=== PATIENT | male | born 1975 | race African-American/Black ===

== ENCOUNTER 2017-04-29 03:03 | Inpatient (IN) | payer OTHER ==
[~2017-04-29] VITALS: Ht 180.3 cm; Wt 67.9 kg
[2017-04-29] VITALS (13 sets, daily range): BP systolic 104–136; BP diastolic 65–103; PULSE 68–98; RESP 16–20; Ht 180.3 cm; Wt 67.9 kg
[2017-04-29] MEDS ORDERED: ALBU8.5H3 INH (06:38)
[2017-04-29] MEDS ORDERED: MAGN400T27 PO (06:38)
[2017-04-29] MEDS ORDERED: SPIR100T31 PO (06:38)
[2017-04-29] MEDS ORDERED: RAMI2.5C31 PO (06:38)
[2017-04-29] MEDS ORDERED: COU5 PO (06:38)
[2017-04-29] MEDS ORDERED: FURO40TA4 PO (06:38)
[2017-04-29] MEDS ORDERED: CARV3.12 PO (06:38)
[2017-04-29] MEDS ORDERED: ONDANSETRON 4 MG INJ IV PRN (07:30)
[2017-04-29] MEDS ORDERED: ACETAMINOPHEN 325 MG TAB PO PRN (07:30)
[2017-04-29 08:23] LABS: BASOPHIL # 0.1 10^3/ul (0.0-0.1); EOSINOPHILS # 0.3 10^3/ul (0.0-0.5); EOSINOPHILS % 4.1 % (0.0-7.0); HEMATOCRIT 45.2 % (42.0-52.0); HEMOGLOBIN 15.5 g/dl (14.0-18.0); LYMPHOCYTES % 27.1 % (15.0-51.0); MEAN CORPUSCULAR HEMOGLOBIN 30.3 pg (29.0-33.0); MEAN CORPUSCULAR HGB CONC 34.3 g/dl (32.0-37.0); MEAN CORPUSCULAR VOLUME 88.5 fl (82.0-101.0); MEAN PLATELET VOLUME 11.2 fl (7.4-10.4); MONOCYTE # 0.3 10^3/ul (0.3-0.9); MONOCYTES % 3.8 % (0.0-11.0); NEUTROPHIL # 4.7 10^3/ul (1.6-7.5); NEUTROPHILS % 63.7 % (39.0-77.0); PLATELET COUNT 227 10^3/UL (140-415); RED BLOOD COUNT 5.11 10^6/ul (4.70-6.10); RED CELL DISTRIBUTION WIDTH 15.7 % (11.5-14.5); WHITE BLOOD COUNT 7.3 10^3/ul (4.8-10.8)
[2017-04-29 08:50] LABS: CALCIUM 8.4 mg/dl (8.4-10.2); CHOL/HDL RATIO 4.3 RATIO; CREATININE 1.1 mg/dl (0.61-1.24); INR 1.06; POTASSIUM 4.1 mmol/L (3.5-5.1); PROTIME 13.9 Sec (11.9-14.9); PT RATIO 1.1
[2017-04-29 08:54] LABS: TROPONIN-I 0.058 ng/ml (0.00-0.12)
[2017-04-29] MEDS ORDERED: WARFARIN 5 MG TAB PO SCH (09:00)
[2017-04-29 09:01] LABS: CK-MB 1.35 ng/ml (0.0-2.4)
[2017-04-29] MEDS: ASPIRIN 81 MG TAB PO SCH (10:00)
[2017-04-29] MEDS: SPIRONOLACTONE 25 MG TAB PO SCH (10:01)
[2017-04-29] MEDS: MAGNESIUM OXIDE 400 MG TAB PO SCH (10:02)
[2017-04-29] MEDS: BENAZEPRIL 10 MG TAB PO SCH (10:02)
[2017-04-29] MEDS: ALBUTEROL HFA 8 GM INHALER INH SCH ×3 (11:04→17:40)
--- NOTE | 2017-04-29 14:17 | RADRPT ---
Echocardiogram Report Patient Name: DARIEL VENTURA Gender: Male Date: 1975 Study Date: 29-Apr-2017 Show Card Letterer: Kate [facility] Location: 5550-A Ref. Physician: FANNY REGAN Quality: Adequate Procedures: Transthoracic echocardiogram with complete 2D, M-Mode, and doppler examination. Indications: Atrial Fibrillation. 2D/M Mode Doppler Measurement Value Normal Ranges Measurement Value Normal Ranges LVIDd 2D 6.7 3.5 - 5.6 cm AV Peak Luis Fernando 0.9 m/sec LVIDs 2D 5.9 2.1 - 4.1 cm AV Peak PG 3.0 mmHg FS 2D 11.9 % LVOT Peak Luis Fernando 0.5 m/sec LVPWd 2D 1.0 0.6 - 1.1 cm LVOT Peak PG 1.0 mmHg IVSd 2D 1.0 0.6 - 1.1 cm MV E Peak Luis Fernando 1.0 m/sec IVS/LVPW 2D 1.0 MV Decel Time 88 msec AoR Diam 2D 2.7 2.0 - 3.7 cm TR Peak Luis Fernando 2.5 m/sec LA/Ao 2D 2 0 - 1 TR Peak PG 24.0 mmHg EDV 2D 294.0 cm3 RVSP 27.0 mmHg ESV 2D 201.0 cm3 LA Dimen 2D 4.5 2.3 - 4.0 cm Findings Left Ventricle: Normal left ventricular wall thickness. Moderate enlargement of left ventricle cavity. Severe global left ventricular systolic dysfunction. Ejection fraction is visually estimated at 20 %. Tissue Doppler/Mitral Doppler indices are consistent with impaired relaxation (Stage I diastolic dysfunction). Right Ventricle: Normal right ventricular size. Normal right ventricular systolic function. Left Atrium: There is mild enlargement of left atrium. Right Atrium: There is mild enlargement of right atrium. Mitral Valve: Mild mitral leaflet calcification. Mild mitral annular calcification. Mild to moderate mitral valve regurgitation. Aortic Valve: No significant aortic stenosis or insufficiency. Aortic sclerosis without significant stenosis. Tricuspid Valve: Normal appearance of the tricuspid valve. Estimated peak PA systolic pressure 27 mmHg. Tricuspid valve appears mildly thickened. There is mild tricuspid regurgitation. Pulmonic Valve: Pulmonic valve not well visualized. There is trace pulmonic regurgitation. Pericardium: Left pleural effusion seen. Aorta: Normal aortic root. IVC: Normal size and normal respiratory collapse consistent with normal right atrial pressure. Conclusions 1.Normal left ventricular wall thickness. Moderate enlargement of left ventricle cavity. Severe global left ventricular systolic dysfunction. Ejection fraction is visually estimated at 20 %. Tissue Doppler/Mitral Doppler indices are consistent with impaired relaxation (Stage I diastolic dysfunction). 2.There is mild enlargement of left atrium. 3.There is mild enlargement of right atrium. 4.Mild mitral leaflet calcification. Mild mitral annular calcification. Mild to moderate mitral valve regurgitation. 5.Normal appearance of the tricuspid valve. Estimated peak PA systolic pressure 27 mmHg. Tricuspid valve appears mildly thickened. There is mild tricuspid regurgitation. 6.Pulmonic valve not well visualized. There is trace pulmonic regurgitation. Electronically Signed By: Chas Islas 29-Apr-2017 14:16:03 -0800 Patient Name: DARIEL VENTURA Study Date: 29-Apr-2017 [id number]
--- NOTE | 2017-04-29 14:56 | QN ---
Documentation Comment Pt seen and examined at bedside FANNY REGAN MD Apr 29, 2017 14:56
[2017-04-29] MEDS ORDERED: morphine 2 MG INJ IV PRN (15:00)
--- NOTE | 2017-04-29 15:33 | CONS ---
DATE OF ADMISSION: 04/29/2017 DATE OF CONSULTATION: 04/29/2017 REASON FOR CONSULTATION: Chest pain, assess for acute coronary syndrome, congestive heart failure. REQUESTING PHYSICIAN: Dr. Fitzpatrick. HISTORY OF PRESENT ILLNESS: Mr. De La Torre is a 42-year-old male with a history of possible cardiomyopa thy and congestive heart failure, substance abuse with crack, methamphetamines, unclear reason for t aking Coumadin, question cardiac arrhythmia per history taken who presents with complaints of subste rnal chest pain described as a tightening sensation associated with shortness of breath ongoing for approximately 1 week. Initially, patient had presented to an outside hospital with chills where he had a negative troponin, INR of 1.1. The patient underwent a chest x-ray revealing prominent bronchovascular markings concerning for inga estive heart failure, dyspnea and a creatinine mildly elevated at 1.26. Sodium 141, potassium 4.0. Normal LFTs. White blood cell count 9.4, hemoglobin of 16.5, platelet count of 272. EKG is not in the chart, but per chart biopsy it stated that EKG at the outside hospital revealed sinus rhythm wi th a rate of 90 with left ventricular hypertrophy and inverted T waves V4 through V6, likely consist ent with the patient's LVH with strain pattern. The patient has thereafter been transferred to [facility] due to insurance reasons. Since arrival at [facility], t he patient continues to have mild substernal chest pressure. The patient has had stable vital signs . PAST MEDICAL HISTORY: As above in HPI. MEDICATIONS CURRENTLY IN HOSPITAL: 1. Lasix 40 mg p.o. b.i.d. 2. Aspirin 81 mg daily. 3. Albuterol 2 puffs q.6h. 4. Carvedilol 3.125 mg p.o. b.i.d. 5. Aldactone 25 mg daily. 6. Coumadin 5 mg daily. 7. Benazepril 10 mg daily. 8. Zofran. 9. Sublingual nitroglycerin p.r.n. ALLERGIES: NO KNOWN DRUG ALLERGIES. SOCIAL HISTORY: No tobacco, social ETOH. Positive illicit drug use with methamphetamines and crack per patient. FAMILY HISTORY: No history of sudden cardiac or early CAD. REVIEW OF SYSTEMS: As above in HPI. CONSTITUTIONAL: No fevers, chills. PULMONARY: Shortness of breath. CARDIOVASCULAR: Intermittent chest pain. GASTROINTESTINAL: No vomiting. GENITOURINARY: No hematuria. MUSCULOSKELETAL: Degenerative joint disease. PSYCHIATRIC: The patient denies depression. NEUROLOGIC: No documented history of CVA. PHYSICAL EXAMINATION VITAL SIGNS: Temperature 98.9, blood pressure 124/94, pulse 70, respirations 17, saturating 94% on 2 liters. GENERAL: The patient is alert, awake, complaining of shortness of breath and chest pain. NECK: JVP approximately 9 cm water. CHEST: Fair air movement throughout. HEART: Regular rate and rhythm. Normal S1, S2. Positive S3. ABDOMEN: Positive bowel sounds, soft. EXTREMITIES: No pitting edema, 1+ pulses bilateral posterior tibial. LABORATORIES: As above in HPI with most recently from today, sodium 139, potassium 4.1, creatinine 1.1, BUN 17. Troponin negative. LDL of 104, HDL 35, white count 7.3, hemoglobin 15.5, platelet cou nt 227. INR 1.1. IMAGING STUDIES: No imaging studies for my review at this time. ECG: No electrocardiograms for my review at this time. IMPRESSION: 1. Chest pain, assess for acute coronary syndrome. 2. Congestive heart failure by outside read chest x-ray and history. 3. Hypertension, under control. 4. Dyslipidemia with low HDL. 5. Substance abuse. 6. Possible cardiac arrhythmia, on Coumadin. RECOMMENDATIONS: 1. At this time, would maintain patient on telemetry monitoring to follow rhythm and rate control c losely. 2. Would check serial EKGs for change and EKG in the morning. EKG for any complaints of ches t pain or change in rhythm. 3. Complete the patient's rule out for myocardial infarction to ensure the patient's chest pain is not due to any acute coronary syndromes or acute myocardial infarction. 4. Check a 2D echocardiogram to further assess the patient's ejection fraction, wall motion and any major valve abnormalities. 5. Continue the patient's aspirin at this time for prophylaxis against cardiovascular events. 6. Continue the patient's current carvedilol, benazepril for treatment for what is probable cardiom yopathy. 7. Continue the patient's Lasix diuresis at this time. We will maintain n.p.o. Follow the patient 's volume status closely. 8. Will consider a stress testing in this patient if he rules out for myocardial infarction. 9. Continue the patient's Coumadin at this time and continue to assess for etiology and reason for standing Coumadin therapy. Thank you for allowing me to take part in the care of this patient. I will continue to follow along very closely with you. Further recommendations will be made as the patient progresses through his inpatient hospital clinical course. Dictated By: MADINA HOWARD/ALETA Conf#: [id number] DID#: [id number] CC: FANNY FITZPATRICK;*EndCC*
[2017-04-29 16:27] LABS: TROPONIN-I 0.086 ng/ml (0.00-0.12)
[2017-04-29 16:33] LABS: CK-MB 1.96 ng/ml (0.0-2.4)
[2017-04-29] MEDS: FUROSEMIDE 40 MG TAB PO SCH (17:40)
[2017-04-29] MEDS: NITROGLYCERIN (SL) 0.4 MG TAB SL PRN ×2 (17:42→17:50)
--- NOTE | 2017-04-29 20:36 | RADRPT ---
Vent Rate: 80 bpm RR Interval: 0 msec IN Interval: 144 msec QRS Duration: 102 msec QT Interval: 402 msec QTC Interval: 463 msec P-R-T [place]: 65 - 87 - 0 degrees Normal sinus rhythm Left atrial enlargement T wave abnormality, consider inferior ischemia Prolonged QT Abnormal ECG Electronically Signed By: Art Clay [id number]
[2017-04-29] MEDS: QUETIAPINE 25 MG TAB PO SCH (20:51)
[2017-04-29] MEDS: MIRTAZAPINE 15 MG TAB PO SCH (20:52)
[2017-04-29] MEDS: ISOSORBIDE DINITRATE 10 MG TAB PO SCH (20:52)
--- NOTE | 2017-04-29 20:53 | HP ---
DATE OF ADMISSION: 04/29/2017 REASON FOR ADMISSION: Chest pain, shortness of breath and lower extremity cramps. HISTORY OF PRESENT ILLNESS: This is a 42-year-old male who has a very strong positive history of co miriam abuse for the last 3 to 4 years, history of amphetamine use, who according to him, was diagnos ed with CHF 2 years ago, presented to the emergency department at [facility] complaining of chest pain for a few days, and also dyspnea on exertion. According to the patient, he was diagnose d a few years ago, at [facility], with CHF. He was told that he had really bad heart. He was started on some medications like Lasix, Coumadin and spironolactone; however, he said that since he got discharged from the hospital, he never took any medications. He is very noncompliant. For the last few weeks, the patient has been noticing intermittent left-sided chest pains, sharp, pressu re-like, staying all day long and had been having dyspnea on exertion that made him come to the [facility] [place]. The patient said that dyspnea on exertion was worse when he used to walk. He has been currently on disability. also been having cough and was taking some [place] . He denies any complaints of orthopnea. Denies any lower extremity edema. On arrival to [facility], vital signs were stable. The patient had EKG that showed T-wave inversions in lead V2, V4. Patient had troponin that was negative. The patient was sent in to [facility] for insurance reasons. On my examination, currently, patient said that he had been having interm ittent left-sided chest pains for past few days, which is exertional in nature. Patient has also be en noticing bilateral lower extremity leg cramping. The patient also has history of schizophrenia a nd has not been taking Seroquel and Remeron for past few days. PAST MEDICAL HISTORY: 1. Hypertension. 2. Drug abuse, cocaine, amphetamine. 3. Smoking. 4. History of CHF. ALLERGIES: NONE. PAST SURGICAL HISTORY: None. MEDICATIONS: Which were listed as per the records were: 1. Coreg 3.125 b.i.d. 2. Spironolactone 25. 3. Lasix 40 b.i.d. 4. Coumadin 5. 5. Ramipril 2.5. 6. Magnesium oxide 400. 7. Albuterol p.r.n. wheezing. 8. medications taking for his schizophrenia are Seroquel, Remeron and diphenhydramine. SOCIAL HISTORY: The patient lives in a rehab facility. The patient has a sister who lives close to him. FAMILY HISTORY: Noncontributory. REVIEW OF SYSTEMS: Patient complains of occasional headaches. Denies any blurry vision. Denies an y neck pain. Intermittent chest pain, shortness of breath with cough. No fevers, no chills, no hem atemesis, no melena, no bright blood per rectum. The patient also complains of cramping of the bila teral lower extremities, especially on walking. PHYSICAL EXAMINATION: VITAL SIGNS: Blood pressure 124/92, heart rate is 70, respirations 17, saturating 94%. GENERAL: The patient is awake, alert, oriented -[place] gentleman, appears to be in mild di stress secondary to pain. HEENT: Pupils equal, round, reactive to light. NECK: Supple. JVD. HEART: Regular rate and rhythm. No murmur, rub or gallop. LUNGS: Decreased breath sounds bilaterally. ABDOMEN: Soft, nontender, nondistended. BREASTS: The patient has gynecomastia. EXTREMITIES: No clubbing, cyanosis or edema. NEUROLOGIC: Nonfocal. DIAGNOSTIC DATA: Shows BMP within normal limit, BUN of 17, creatinine 1.70. Troponin was 0.058. L DL of 104. White count was 7.3, hemoglobin 15.5, platelet count of 227. The patient had chest x-ra y there at [facility] that showed some mild pulmonary edema. EKG shows T-wave inversions i n lead V2, V4. ASSESSMENT AND PLAN: A 42-year-old male presenting with: 1. Shortness of breath, dyspnea on exertion, orthopnea, likely secondary to [id number]-[id number] systol ic congestive heart failure. 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 2. Chest pain, rule out acute coronary syndrome given the history of cocaine use. 3. Bilateral lower extremity cramping. Rule out cocaine-induced rhabdomyolysis versus peripheral v ascular disease. 4. Hypertension. 5. History of drug use, cocaine use. 6. Noncompliance. 7. Marijuana use. 8. Amphetamine use. PLAN: At this period of time, patient will be admitted to [facility]. We will get serial EKG, serial trop onins. The patient will be on aspirin, statin, Coreg, Lasix, benazepril. We will get an echo. The patient will most likely need stress testing. Cardiology consultation with Dr. Islas has already been requested. Rest of the treatment will depend on the patient's hospitalization course. Dictated By: FANNY GUZMAN/ALETA Conf#: [id number] DID#: [id number] CC: CHARI PULIDO MD;*End*
[2017-04-29] MEDS ORDERED: MIRTAZAPINE 15 MG TAB GTB SCH (21:00)
[2017-04-29 21:13] LABS: CK-MB 2.15 ng/ml (0.0-2.4); TROPONIN-I 0.152 ng/ml (0.00-0.12)
[2017-04-29] MEDS: HYDROCODONE/APAP (5/325) TAB PO PRN (22:11)
[2017-04-30] VITALS (11 sets, daily range): BP systolic 107–127; BP diastolic 70–85; PULSE 61–89; RESP 15–20
[2017-04-30] MEDS: ALBUTEROL HFA 8 GM INHALER INH SCH ×4 (00:50→17:32)
[2017-04-30] MEDS: PANTOPRAZOLE (EC) 40 MG TAB PO SCH (05:09)
[2017-04-30] MEDS: FUROSEMIDE 40 MG TAB PO SCH (05:11)
--- NOTE | 2017-04-30 07:19 | RADRPT ---
PROCEDURE: US Lower extremity arterial. CLINICAL INDICATION: Claudication and rest pain. TECHNIQUE: Multiple sonographic images of the bilateral lower extremity arteries were obtained uti lizing grayscale, color-flow and doppler imaging. The images were reviewed on a PACS workstation. COMPARISON: None. FINDINGS: Velocities and waveforms were obtained as described below. RIGHT LEG: Right common femoral artery: 87 cm/s; triphasic waveforms Right profunda femoral artery: 48 cm/s; triphasic waveforms Right proximal superficial femoral artery: 85 cm/s; triphasic waveforms Right mid superficial femoral artery: 85 cm/s; triphasic waveforms Right distal superficial femoral artery: 89 cm/s; triphasic waveforms Right popliteal artery: 49 cm/s; triphasic waveforms Right posterior tibial artery: 61 cm/s; triphasic waveforms Right dorsalis pedis artery: 57 cm/s; triphasic waveforms REAL: 1.0 LEFT LEG: Left common femoral artery: 63 cm/s; triphasic waveforms Left profunda femoral artery: 42 cm/s; triphasic waveforms Left proximal superficial femoral artery: 71 cm/s; triphasic waveforms Left mid superficial femoral artery: 73 cm/s; triphasic waveforms Left distal superficial femoral artery: 84 cm/s; triphasic waveforms Left popliteal artery: 57 cm/s; triphasic waveforms Left posterior tibial artery: 76 cm/s; triphasic waveforms Left dorsalis pedis artery: 47 cm/s; triphasic waveforms REAL: 1.0 IMPRESSION: 1. No evidence of occlusion or hemodynamically significant arterial stenosis of the bilateral lower extremities. 2. Normal ABIs. RPTAT: AAEE Trudy Brooks Physician Date Time Electronically viewed and signed by Trudy Brooks Physician on 04/30/2017 07:18 PH/
[2017-04-30] MEDS: MAGNESIUM OXIDE 400 MG TAB PO SCH (08:40)
[2017-04-30] MEDS: ASPIRIN 81 MG TAB PO SCH (08:40)
[2017-04-30] MEDS: SPIRONOLACTONE 25 MG TAB PO SCH (08:40)
[2017-04-30] MEDS: HYDROCODONE/APAP (5/325) TAB PO PRN (08:40)
[2017-04-30] MEDS: ISOSORBIDE DINITRATE 10 MG TAB PO SCH ×3 (08:41→20:57)
[2017-04-30] MEDS: BENAZEPRIL 10 MG TAB PO SCH (08:41)
--- NOTE | 2017-04-30 09:43 | CONS ---
Date/Time of Note Date/Time of Note DATE: 04/30/17 TIME: 09:41 Assessment/Plan Assessment/Plan Additional Assessment/Plan 1. Chest pain, assess for acute coronary syndrome- minimally elevated troponins , plan for stress test now. 2. Congestive heart failure by outside read chest x-ray and history - EF 20%, con't Med Rx for now. 3. Hypertension, under control - stable overall. 4. Dyslipidemia with low HDL. 5. Substance abuse - d/c advised. 6. Possible cardiac arrhythmia, on Coumadin - sinus now. Consultation Date/Type/Reason Admit Date/Time Apr 29, 2017 at 05:16 Initial Consult Date 24 HR Interval Summary Free Text/Dictation Pt with abdominal discomfort - NSVT on tele - EF 20%, Stress test to follow. ROS: No fever, no chills, no nausea, no vomiting, no diarrhea/constipation No recent weight changes No chest pain, no PND, no orthopnea No dizziness, blurred vision No thirst, no heat or cold intolerance Exam/Review of Systems Vital Signs Vitals Vital Signs Date Time Temp Pulse Resp B/P Pulse Ox O2 Delivery O2 Flow Rate FiO2 04/30/17 08:13 61 04/30/17 07:21 98.3 20 107/72 97 04/29/17 21:00 Nasal Cannula 3.0 Intake and Output 04/29/17 04/29/17 04/30/17 15:00 23:00 07:00 Intake Total 980 ml 700 ml Output Total 1200 ml 2100 ml Balance -220 ml -1400 ml Exam General: WN/WD/NAD, AOx 3 HEENT: Unicetric/atraumatic/EOMI (follow commands) NECK: JVD elevated, no thyromegaly Lymph: no lymphadenopathy HEART: regular with no S3, II/ systolic murmur at apex - PMI L LUNGS: Coarse sounds ABD: soft, NT, ND, +BS : Intact Neuro: non focal SKIN: chronic changes EXT: trace edema Results Result Diagram: 04/29/1780304/29/17 0804 Results 24 hrs Laboratory Tests Test 04/29/17 14:52 04/29/17 20:20 04/30/17 06:22 Creatine Kinase 147 171 Creatine Kinase Index 1.3 1.3 Creatinine Kinase MB (Mass) 1.96 2.15 Troponin I 0.086 0.152 *H B-Type Natriuretic Peptide 2340 H Medications Medications Current Medications Aspirin (Aspirin) 81 mg DAILY PO Last administered on 04/30/17 08:40; Admin Dose 81 MG; Start 04/29/17 at 09:00 Ondansetron HCl (Zofran Inj) 4 mg Q6H PRN IV NAUSEA AND/OR VOMITING; Start 04/05 at 07:30 Acetaminophen (Tylenol Tab) 650 mg Q6H PRN PO PAIN AND OR ELEVATED TEMP Last administered on 04/29/17 10:01; Admin Dose 650 MG; Start 04/29/17 at 07:30 Pantoprazole (Protonix Tab) 40 mg DAILY@06 PO Last administered on 04/30/17 05:09; Admin Dose 40 MG; Start 04/30/17 at 06:00 Nitroglycerin (Nitroglycerin (Sl Tab) 0.4 Mg) 1 tab Q5M PRN SL ANGINA Last administered on 04/29/17 17:50; Admin Dose 1 TAB; Start 04/29/17 at 07:30 Albuterol (Ventolin Hfa) 2 puff Q6 INH Last administered on 04/30/17 05:09; Admin Dose 2 PUFF; Start 04/29/17 at 09:00 Carvedilol (Coreg) 3.125 mg BID PO Last administered on 04/29/17 20:53; Admin Dose 3.125 MG; Start 04/29/17 at 09:00 Magnesium Oxide (Mag-Ox 400) 400 mg DAILY PO Last administered on 04/30/17 08 :40; Admin Dose 400 MG; Start 04/29/17 at 09:00 Spironolactone (Aldactone) 25 mg DAILY PO Last administered on 04/30/17 08:40 ; Admin Dose 25 MG; Start 04/29/17 at 09:00 Benazepril HCl (Lotensin) 10 mg DAILY PO Last administered on 04/29/17 10:02 ; Admin Dose 10 MG; Start 04/29/17 at 09:00 Isosorbide Dinitrate (Isordil) 10 mg TID PO Last administered on 04/29/17 20: 52; Admin Dose 10 MG; Start 04/29/17 at 21:00 Acetaminophen/ Hydrocodone Bitart ([place] (5/325)) 1 tab Q4H PRN PO PAIN LEVEL 4 -6 Last administered on 04/30/17 08:40; Admin Dose 1 TAB; Start 04/29/17 at 15:00 Morphine Sulfate (morphine) 2 mg Q4H PRN IV PAIN LEVEL 8-10; Start 04/29/17 at 15:00 Quetiapine Fumarate (Seroquel) 50 mg HS PO Last administered on 04/29/17 20: 51; Admin Dose 50 MG; Start 04/29/17 at 21:00 Mirtazapine (Remeron) 15 mg HS PO Last administered on 04/29/17 20:52; Admin Dose 15 MG; Start 04/29/17 at 21:00 Bismuth Subsalicylate (Pepto-Bismol) 30 ml Q6H PRN PO GASTROINTESTINAL UPSET; Start 04/30/17 at 10:00 SERINA HOLDER MD Apr 30, 2017 09:43
[2017-04-30] MEDS: AL HYDROX/MG HYDROX/SIMETH 30 ML CUP PO PRN ×3 (09:52→22:24)
[2017-04-30] MEDS ORDERED: BISMUTH SUBSALICYLATE 120 ML BTL PO PRN (10:00)
--- NOTE | 2017-04-30 14:17 | PN ---
Date/Time of Note Date/Time of Note DATE: 04/30/17 TIME: 14:17 Assessment/Plan VTE Prophylaxis VTE Prophylaxis Intervention: heparin Lines/Catheters IV Catheter Type (from Nrs): Saline Lock Assessment/Plan Chief Complaint/Hosp Course 42 y/o with 1 Shortness of breath, dyspnea on exertion, orthopnea, likely secondary to uabct-mp-tasucty systolic congestive heart failure. 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 2. Chest pain, rule out acute coronary syndrome given the history of cocaine use. 3. Bilateral lower extremity cramping. U/S negative 4. Hypertension. 5. History of drug use, cocaine use. 6. Noncompliance. 7. Marijuana use. 8. Amphetamine use Recs - Stress test tmw - c/w benazepril/ASA/ Coreg/statin - ECHO EF 20% - Cocaine cessation - change lasix to 40 mg daily and c/w spirnolactone - c/w peptobisbol/PPI - Appreciate cards consult Problems: Subjective 24 Hr Interval Summary Free Text/Dictation Pt had abdominal pain today, refused stress test today due to pain Exam/Review of Systems Vital Signs Vitals Vital Signs Date Time Temp Pulse Resp B/P Pulse Ox O2 Delivery O2 Flow Rate FiO2 04/30/17 11:33 98.2 80 20 123/85 97 04/30/17 08:05 Nasal Cannula 2.0 Intake and Output 04/29/17 04/29/17 04/30/17 15:00 23:00 07:00 Intake Total 980 ml 700 ml Output Total 1200 ml 2100 ml Balance -220 ml -1400 ml Exam GENERAL: The patient is awake, alert, oriented -[place]i gentleman, appears to be in mild distress secondary to pain. HEENT: Pupils equal, round, reactive to light. NECK: Supple. JVD. HEART: Regular rate and rhythm. No murmur, rub or gallop. LUNGS: Decreased breath sounds bilaterally. ABDOMEN: Soft, nontender, nondistended. BREASTS: The patient has gynecomastia. EXTREMITIES: No clubbing, cyanosis or edema. NEUROLOGIC: Nonfocal. Results Result Diagram: 04/29/17 0804 04/29/17 0804 Results 24 hrs Laboratory Tests Test 04/29/17 14:52 04/29/17 20:20 04/30/17 06:22 Creatine Kinase 147 171 Creatine Kinase Index 1.3 1.3 Creatinine Kinase MB (Mass) 1.96 2.15 Troponin I 0.086 0.152 *H B-Type Natriuretic Peptide 2340 H Medications Medications Current Medications Aspirin (Aspirin) 81 mg DAILY PO Last administered on 04/30/17 08:40; Admin Dose 81 MG; Start 04/29/17 at 09:00 Ondansetron HCl (Zofran Inj) 4 mg Q6H PRN IV NAUSEA AND/OR VOMITING; Start 04/05 at 07:30 Acetaminophen (Tylenol Tab) 650 mg Q6H PRN PO PAIN AND OR ELEVATED TEMP Last administered on 04/29/17 10:01; Admin Dose 650 MG; Start 04/29/17 at 07:30 Pantoprazole (Protonix Tab) 40 mg DAILY@06 PO Last administered on 04/30/17 05:09; Admin Dose 40 MG; Start 04/30/17 at 06:00 Nitroglycerin (Nitroglycerin (Sl Tab) 0.4 Mg) 1 tab Q5M PRN SL ANGINA Last administered on 04/29/17 17:50; Admin Dose 1 TAB; Start 04/29/17 at 07:30 Albuterol (Ventolin Hfa) 2 puff Q6 INH Last administered on 04/30/17 13:08; Admin Dose 2 PUFF; Start 04/29/17 at 09:00 Carvedilol (Coreg) 3.125 mg BID PO Last administered on 04/30/17 13:09; Admin Dose 3.125 MG; Start 04/29/17 at 09:00 Magnesium Oxide (Mag-Ox 400) 400 mg DAILY PO Last administered on 04/30/17 08 :40; Admin Dose 400 MG; Start 04/29/17 at 09:00 Spironolactone (Aldactone) 25 mg DAILY PO Last administered on 04/30/17 08:40 ; Admin Dose 25 MG; Start 04/29/17 at 09:00 Benazepril HCl (Lotensin) 10 mg DAILY PO Last administered on 04/29/17 10:02 ; Admin Dose 10 MG; Start 04/29/17 at 09:00 Isosorbide Dinitrate (Isordil) 10 mg TID PO Last administered on 12/12/17at 13: 08; Admin Dose 10 MG; Start 04/29/17 at 21:00 Acetaminophen/ Hydrocodone Bitart ([place] (5/325)) 1 tab Q4H PRN PO PAIN LEVEL 4 -6 Last administered on 04/30/17 08:40; Admin Dose 1 TAB; Start 04/29/17 at 15:00 Morphine Sulfate (morphine) 2 mg Q4H PRN IV PAIN LEVEL 8-10; Start 04/29/17 at 15:00 Quetiapine Fumarate (Seroquel) 50 mg HS PO Last administered on 04/29/17 20: 51; Admin Dose 50 MG; Start 04/29/17 at 21:00 Mirtazapine (Remeron) 15 mg HS PO Last administered on 04/29/17 20:52; Admin Dose 15 MG; Start 04/29/17 at 21:00 Bismuth Subsalicylate (Pepto-Bismol) 30 ml Q6H PRN PO GASTROINTESTINAL UPSET; Start 04/30/17 at 10:00 Al Hydrox/Mg Hydrox/Simethicone (Mag-Al Plus) 30 ml Q4H PRN PO GASTROINTESTINAL UPSET Last administered on 04/30/17 09:52; Admin Dose 30 ML; Start 04/30/17 at 10:00 FANNY REGAN MD Apr 30, 2017 14:17
[2017-04-30] MEDS: MIRTAZAPINE 15 MG TAB PO SCH (20:57)
[2017-04-30] MEDS: QUETIAPINE 25 MG TAB PO SCH (20:57)
--- NOTE | 2017-04-30 21:49 | RADRPT ---
Vent Rate: 82 bpm RR Interval: 0 msec [place] Interval: 140 msec QRS Duration: 104 msec QT Interval: 408 msec QTC Interval: 476 msec P-R-T [place]: 73 - 96 - 91 degrees Normal sinus rhythm Biatrial enlargement Rightward axis Pulmonary disease pattern Left ventricular hypertrophy Cannot rule out Septal infarct , age undetermined T wave abnormality, consider lateral ischemia Abnormal ECG Electronically Signed By: Art Clay [id number]
[2017-05-01] VITALS (12 sets, daily range): BP systolic 95–116; BP diastolic 52–76; PULSE 60–80; RESP 16–19
[2017-05-01] MEDS: ALBUTEROL HFA 8 GM INHALER INH SCH ×4 (02:56→17:24)
[2017-05-01] MEDS: PANTOPRAZOLE (EC) 40 MG TAB PO SCH (06:00)
[2017-05-01 08:02] LABS: BASOPHIL # 0.1 10^3/ul (0.0-0.1); BASOPHILS % 1.3 % (0.0-2.0); EOSINOPHILS # 0.3 10^3/ul (0.0-0.5); EOSINOPHILS % 5.8 % (0.0-7.0); HEMATOCRIT 47.4 % (42.0-52.0); LYMPHOCYTES # 1.6 10^3/ul (0.8-2.9); LYMPHOCYTES % 30.1 % (15.0-51.0); MEAN CORPUSCULAR HEMOGLOBIN 29.8 pg (29.0-33.0); MEAN CORPUSCULAR HGB CONC 33.8 g/dl (32.0-37.0); MEAN CORPUSCULAR VOLUME 88.3 fl (82.0-101.0); MONOCYTE # 0.4 10^3/ul (0.3-0.9); MONOCYTES % 7.7 % (0.0-11.0); NEUTROPHIL # 2.9 10^3/ul (1.6-7.5); NEUTROPHILS % 55.1 % (39.0-77.0); PLATELET COUNT 233 10^3/UL (140-415); RED BLOOD COUNT 5.37 10^6/ul (4.70-6.10); RED CELL DISTRIBUTION WIDTH 15.2 % (11.5-14.5); WHITE BLOOD COUNT 5.3 10^3/ul (4.8-10.8)
[2017-05-01] MEDS: ASPIRIN 81 MG TAB PO SCH (08:31)
[2017-05-01] MEDS: AL HYDROX/MG HYDROX/SIMETH 30 ML CUP PO PRN (08:31)
[2017-05-01] MEDS: SPIRONOLACTONE 25 MG TAB PO SCH (08:32)
[2017-05-01] MEDS: MAGNESIUM OXIDE 400 MG TAB PO SCH (08:32)
[2017-05-01 08:33] LABS: CREATININE 1.32 mg/dl (0.61-1.24); POTASSIUM 4.6 mmol/L (3.5-5.1)
[2017-05-01] MEDS: BENAZEPRIL 10 MG TAB PO SCH (08:33)
[2017-05-01] MEDS: ISOSORBIDE DINITRATE 10 MG TAB PO SCH ×3 (08:33→21:17)
[2017-05-01] MEDS ORDERED: FUROSEMIDE 40 MG TAB PO SCH (09:00)
[2017-05-01] MEDS ORDERED: REGADENOSON 0.4 MG/5 ML SYG ONE (11:39)
--- NOTE | 2017-05-01 13:12 | RADRPT ---
PROCEDURE: Lexiscan myocardial perfusion study CLINICAL INDICATION: 42 -year-old patient complaining of chest pain. TECHNIQUE: Lexiscan 0.4 mg intravenously separate acquisition gated myocardial perfusion SPECT usi ng Tc 99m Myoview approximately 30.0 mCi intravenously at stress and Tc-99m Myoview, approximately 1 0.0 mCi intravenously at rest was performed using the rest/stress sequence. Poststress Myoview SPEC T images were obtained in the supine position. COMPARISON: No prior studies. FINDINGS: Perfusion images reveal a large size moderate in degree predominantly nonreversible perfusion defect in the apical, anterior, lateral and inferior curran. Lexiscan post stress gated SPECT images demonstrate severe hypokinesis of the dilated left ventricle . IMPRESSION: 1. The type and distribution of the scintigraphic abnormalities are most consistent with a large siz e predominantly nonreversible perfusion defect in the apex, anterior, lateral and inferior curran. 2. Severe hypokinesis of the dilated left ventricle. 3. The left ventricle ejection fraction at stress is 11%. A call report was made to Dr. Islas at 01:09 p.m. on May 01, 2017. RPTAT: HH .Yoana Solorio MD, Date Time Electronically viewed and signed by .Yoana Solorio MD, MD on 05/01/2017 13:11 .L/
--- NOTE | 2017-05-01 13:24 | ECORPT ---
DATE OF SERVICE: 05/01/2017 LEXISCAN CARDIAC STRESS TEST REFERRING PHYSICIAN: Dr. Pulido. REASON FOR EVALUATION: Cardiomyopathy, reduced ejection fraction. DESCRIPTION OF PROCEDURE: The patient was brought in heart station. He had successful Lexiscan inj ection. Blood pressure 130/84, heart rate in the 70s. Imaging portion of the report is dictated se andrewely. Dictated By: SERINA HOLDER MD ML/NTS Conf#: [id number] DID#: [id number] CC: CHARI PULIDO MD;*EndCC*
--- NOTE | 2017-05-01 14:16 | PN ---
Date/Time of Note Date/Time of Note DATE: 05/01/17 TIME: 14:14 Assessment/Plan VTE Prophylaxis VTE Prophylaxis Intervention: heparin, LMWH Lines/Catheters IV Catheter Type (from Nrs): Saline Lock Assessment/Plan Chief Complaint/Hosp Course 42 y/o with 1 Shortness of breath, dyspnea on exertion, orthopnea, likely secondary to [id number] systolic congestive heart failure. 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 2. Chest pain, rule out acute coronary syndrome given the history of cocaine use. pending stress test results 3. Bilateral lower extremity cramping. U/S negative 4. Hypertension. 5. History of drug use, cocaine use. 6. Noncompliance. 7. Marijuana use. 8. Amphetamine use 9 BINTA likely due to overdiuresis Recs - Stress test results pending - c/w benazepril/ASA/ Coreg/statin - ECHO EF 20% - Cocaine cessation - change lasix po - c/w peptobisbol/PPI - Appreciate cards consult Problems: Subjective 24 Hr Interval Summary Free Text/Dictation Pt feels better today net neg 1.6 L Exam/Review of Systems Vital Signs Vitals Vital Signs Date Time Temp Pulse Resp B/P Pulse Ox O2 Delivery O2 Flow Rate FiO2 05/01/17 12:13 80 05/01/17 11:24 97.8 16 112/76 100 04/30/17 20:00 Nasal Cannula 2.0 Intake and Output 04/30/17 04/30/17 05/01/17 14:59 22:59 06:59 Intake Total 960 ml 300 ml Output Total 1200 ml Balance -240 ml 300 ml Exam GENERAL: The patient is awake, alert, oriented -[place] gentleman, appears to be in mild distress secondary to pain. HEENT: Pupils equal, round, reactive to light. NECK: Supple. JVD. HEART: Regular rate and rhythm. No murmur, rub or gallop. LUNGS: Decreased breath sounds bilaterally. ABDOMEN: Soft, nontender, nondistended. BREASTS: The patient has gynecomastia. EXTREMITIES: No clubbing, cyanosis or edema. NEUROLOGIC: Nonfocal. Results Result Diagram: 05/01/17 0740 05/01/17 0740 Results 24 hrs Laboratory Tests Test 05/01/17 07:40 White Blood Count 5.3 # Red Blood Count 5.37 Hemoglobin 16.0 Hematocrit 47.4 Mean Corpuscular Volume 88.3 Mean Corpuscular Hemoglobin 29.8 Mean Corpuscular Hemoglobin Concent 33.8 Red Cell Distribution Width 15.2 H Platelet Count 233 Mean Platelet Volume 11.0 H Neutrophils % 55.1 Lymphocytes % 30.1 Monocytes % 7.7 Eosinophils % 5.8 Basophils % 1.3 Nucleated Red Blood Cells % 0.0 Neutrophils # 2.9 Lymphocytes # 1.6 Monocytes # 0.4 Eosinophils # 0.3 Basophils # 0.1 Nucleated Red Blood Cells # 0.0 Sodium Level 138 Potassium Level 4.6 Chloride Level 105 Carbon Dioxide Level 27 Anion Gap 11 Blood Urea Nitrogen 22 H Creatinine 1.32 H Glucose Level 87 Calcium Level 9.0 Medications Medications Current Medications Aspirin (Aspirin) 81 mg DAILY PO Last administered on 05/01/17 08:31; Admin Dose 81 MG; Start 04/29/17 at 09:00 Ondansetron HCl (Zofran Inj) 4 mg Q6H PRN IV NAUSEA AND/OR VOMITING; Start 04/05 at 07:30 Acetaminophen (Tylenol Tab) 650 mg Q6H PRN PO PAIN AND OR ELEVATED TEMP Last administered on 04/29/17 10:01; Admin Dose 650 MG; Start 04/29/17 at 07:30 Pantoprazole (Protonix Tab) 40 mg DAILY@06 PO Last administered on 04/30/17 05:09; Admin Dose 40 MG; Start 04/30/17 at 06:00 Nitroglycerin (Nitroglycerin (Sl Tab) 0.4 Mg) 1 tab Q5M PRN SL ANGINA Last administered on 04/29/17 17:50; Admin Dose 1 TAB; Start 04/29/17 at 07:30 Albuterol (Ventolin Hfa) 2 puff Q6 INH Last administered on 05/01/17 06:15; Admin Dose 2 PUFF; Start 04/29/17 at 09:00 Carvedilol (Coreg) 3.125 mg BID PO Last administered on 05/01/17 08:32; Admin Dose 3.125 MG; Start 04/29/17 at 09:00 Magnesium Oxide (Mag-Ox 400) 400 mg DAILY PO Last administered on 05/01/17 08 :32; Admin Dose 400 MG; Start 04/29/17 at 09:00 Spironolactone (Aldactone) 25 mg DAILY PO Last administered on 05/01/17 08:32 ; Admin Dose 25 MG; Start 04/29/17 at 09:00 Benazepril HCl (Lotensin) 10 mg DAILY PO Last administered on 05/01/17 08:33 ; Admin Dose 10 MG; Start 04/29/17 at 09:00 Isosorbide Dinitrate (Isordil) 10 mg TID PO Last administered on 05/01/17 08: 33; Admin Dose 10 MG; Start 04/29/17 at 21:00 Acetaminophen/ Hydrocodone Bitart ([place] (5/325)) 1 tab Q4H PRN PO PAIN LEVEL 4 -6 Last administered on 04/30/17 08:40; Admin Dose 1 TAB; Start 04/29/17 at 15:00 Morphine Sulfate (morphine) 2 mg Q4H PRN IV PAIN LEVEL 8-10; Start 04/29/17 at 15:00 Quetiapine Fumarate (Seroquel) 50 mg HS PO Last administered on 04/30/17 20: 57; Admin Dose 50 MG; Start 04/29/17 at 21:00 Mirtazapine (Remeron) 15 mg HS PO Last administered on 04/30/17 20:57; Admin Dose 15 MG; Start 04/29/17 at 21:00 Bismuth Subsalicylate (Pepto-Bismol) 30 ml Q6H PRN PO GASTROINTESTINAL UPSET; Start 04/30/17 at 10:00 Al Hydrox/Mg Hydrox/Simethicone (Mag-Al Plus) 30 ml Q4H PRN PO GASTROINTESTINAL UPSET Last administered on 05/01/17 08:31; Admin Dose 30 ML; Start 04/30/17 at 10:00 FANNY REGAN MD May 01, 2017 14:16
--- NOTE | 2017-05-01 15:49 | CONS ---
Date/Time of Note Date/Time of Note DATE: 05/01/17 TIME: 15:47 Assessment/Plan Assessment/Plan Additional Assessment/Plan NO acute change - STRESS TEST today - will follow ROS: No fever, no chills, no nausea, no vomiting, no diarrhea/constipation No recent weight changes No chest pain, no PND, no orthopnea No dizziness, blurred vision No thirst, no heat or cold intolerance Consultation Date/Type/Reason Admit Date/Time Apr 29, 2017 at 05:16 24 HR Interval Summary Free Text/Dictation NO acute events - BP in good range - will review stress test results. ROS: No fever, no chills, no nausea, no vomiting, no diarrhea/constipation No recent weight changes No chest pain, no PND, no orthopnea No dizziness, blurred vision No thirst, no heat or cold intolerance Exam/Review of Systems Vital Signs Vitals Vital Signs Date Time Temp Pulse Resp B/P Pulse Ox O2 Delivery O2 Flow Rate FiO2 05/01/17 15:40 98.1 97 16 105/71 100 04/30/17 20:00 Nasal Cannula 2.0 Intake and Output 04/30/17 04/30/17 05/01/17 15:00 23:00 07:00 Intake Total 960 ml 300 ml Output Total 1200 ml Balance -240 ml 300 ml Exam General: WN/WD/NAD, AOx 3 HEENT: Unicetric/atraumatic/EOMI (follow commands) NECK: JVD elevated, no thyromegaly Lymph: no lymphadenopathy HEART: regular with no S3, II/ systolic murmur at apex, PMI L LUNGS: Coarse sounds ABD: soft, NT, ND, +BS : Intact Neuro: non focal SKIN: chronic changes EXT: trace edema Results Result Diagram: 05/01/17 0740 05/01/17 0740 Results 24 hrs Laboratory Tests Test 05/01/17 07:40 White Blood Count 5.3 # Red Blood Count 5.37 Hemoglobin 16.0 Hematocrit 47.4 Mean Corpuscular Volume 88.3 Mean Corpuscular Hemoglobin 29.8 Mean Corpuscular Hemoglobin Concent 33.8 Red Cell Distribution Width 15.2 H Platelet Count 233 Mean Platelet Volume 11.0 H Neutrophils % 55.1 Lymphocytes % 30.1 Monocytes % 7.7 Eosinophils % 5.8 Basophils % 1.3 Nucleated Red Blood Cells % 0.0 Neutrophils # 2.9 Lymphocytes # 1.6 Monocytes # 0.4 Eosinophils # 0.3 Basophils # 0.1 Nucleated Red Blood Cells # 0.0 Sodium Level 138 Potassium Level 4.6 Chloride Level 105 Carbon Dioxide Level 27 Anion Gap 11 Blood Urea Nitrogen 22 H Creatinine 1.32 H Glucose Level 87 Calcium Level 9.0 Medications Medications Current Medications Aspirin (Aspirin) 81 mg DAILY PO Last administered on 05/01/17 08:31; Admin Dose 81 MG; Start 04/29/17 at 09:00 Ondansetron HCl (Zofran Inj) 4 mg Q6H PRN IV NAUSEA AND/OR VOMITING; Start 04/05 at 07:30 Acetaminophen (Tylenol Tab) 650 mg Q6H PRN PO PAIN AND OR ELEVATED TEMP Last administered on 04/29/17 10:01; Admin Dose 650 MG; Start 04/29/17 at 07:30 Pantoprazole (Protonix Tab) 40 mg DAILY@06 PO Last administered on 04/30/17 05:09; Admin Dose 40 MG; Start 04/30/17 at 06:00 Nitroglycerin (Nitroglycerin (Sl Tab) 0.4 Mg) 1 tab Q5M PRN SL ANGINA Last administered on 04/29/17 17:50; Admin Dose 1 TAB; Start 04/29/17 at 07:30 Albuterol (Ventolin Hfa) 2 puff Q6 INH Last administered on 05/01/17 06:15; Admin Dose 2 PUFF; Start 04/29/17 at 09:00 Carvedilol (Coreg) 3.125 mg BID PO Last administered on 05/01/17 08:32; Admin Dose 3.125 MG; Start 04/29/17 at 09:00 Magnesium Oxide (Mag-Ox 400) 400 mg DAILY PO Last administered on 05/01/17 08 :32; Admin Dose 400 MG; Start 04/29/17 at 09:00 Benazepril HCl (Lotensin) 10 mg DAILY PO Last administered on 05/01/17 08:33 ; Admin Dose 10 MG; Start 04/29/17 at 09:00 Isosorbide Dinitrate (Isordil) 10 mg TID PO Last administered on 05/01/17 08: 33; Admin Dose 10 MG; Start 04/29/17 at 21:00 Acetaminophen/ Hydrocodone Bitart ([place] (5/325)) 1 tab Q4H PRN PO PAIN LEVEL 4 -6 Last administered on 04/30/17 08:40; Admin Dose 1 TAB; Start 04/29/17 at 15:00 Morphine Sulfate (morphine) 2 mg Q4H PRN IV PAIN LEVEL 8-10; Start 04/29/17 at 15:00 Quetiapine Fumarate (Seroquel) 50 mg HS PO Last administered on 04/30/17 20: 57; Admin Dose 50 MG; Start 04/29/17 at 21:00 Mirtazapine (Remeron) 15 mg HS PO Last administered on 04/30/17 20:57; Admin Dose 15 MG; Start 04/29/17 at 21:00 Bismuth Subsalicylate (Pepto-Bismol) 30 ml Q6H PRN PO GASTROINTESTINAL UPSET; Start 04/30/17 at 10:00 Al Hydrox/Mg Hydrox/Simethicone (Mag-Al Plus) 30 ml Q4H PRN PO GASTROINTESTINAL UPSET Last administered on 05/01/17 08:31; Admin Dose 30 ML; Start 04/30/17 at 10:00 SERINA HOLDER MD May 01, 2017 15:49
[2017-05-01] MEDS: MIRTAZAPINE 15 MG TAB PO SCH (21:16)
[2017-05-01] MEDS: QUETIAPINE 25 MG TAB PO SCH (21:18)
[2017-05-02] VITALS (11 sets, daily range): BP systolic 92–116; BP diastolic 51–74; PULSE 60–80; RESP 18
[2017-05-02] MEDS: ALBUTEROL HFA 8 GM INHALER INH SCH ×4 (00:22→18:48)
[2017-05-02] MEDS: PANTOPRAZOLE (EC) 40 MG TAB PO SCH (06:47)
[2017-05-02] MEDS: MAGNESIUM OXIDE 400 MG TAB PO SCH (08:38)
[2017-05-02] MEDS: ASPIRIN 81 MG TAB PO SCH (08:38)
[2017-05-02] MEDS: AL HYDROX/MG HYDROX/SIMETH 30 ML CUP PO PRN (08:38)
[2017-05-02] MEDS: ISOSORBIDE DINITRATE 10 MG TAB PO SCH ×3 (08:39→21:00)
[2017-05-02] MEDS: BENAZEPRIL 10 MG TAB PO SCH (08:41)
[2017-05-02 09:33] LABS: CREATININE 1.28 mg/dl (0.61-1.24); POTASSIUM 4.6 mmol/L (3.5-5.1)
[2017-05-02 09:35] LABS: PHOSPHORUS 4.2 mg/dl (2.5-4.9)
--- NOTE | 2017-05-02 13:39 | CONS ---
Date/Time of Note Date/Time of Note DATE: 05/02/17 TIME: 13:36 Assessment/Plan Assessment/Plan Additional Assessment/Plan 1. Chest pain, assess for acute coronary syndrome- minimally elevated troponins , plan for stress test now. STRESS STESS LOW EF - no rev Dz - I discussed ICD with pt - he is not sure about it- will defer to outpatient evaluation. 2. Congestive heart failure by outside read chest x-ray and history - EF 20%, con't Med Rx for now. NO rev disease. 3. Hypertension, under control - stable overall. 4. Dyslipidemia with low HDL. 5. Substance abuse - d/c advised. 6. Possible cardiac arrhythmia, on Coumadin - sinus now. Consultation Date/Type/Reason Admit Date/Time Apr 29, 2017 at 05:16 24 HR Interval Summary Free Text/Dictation STRESS STESS LOW EF - no rev Dz - I discussed ICD with pt - he is not sure about iot =- will defer to outpatient evaluation. ROS: No fever, no chills, no nausea, no vomiting, no diarrhea/constipation No recent weight changes No chest pain, no PND, no orthopnea No dizziness, blurred vision No thirst, no heat or cold intolerance Exam/Review of Systems Vital Signs Vitals Vital Signs Date Time Temp Pulse Resp B/P Pulse Ox O2 Delivery O2 Flow Rate FiO2 05/02/17 12:54 70 05/02/17 11:39 98.1 18 115/72 100 04/30/17 20:00 Nasal Cannula 2.0 Intake and Output 05/01/17 05/01/17 05/02/17 15:00 23:00 07:00 Intake Total 720 ml 350 ml Balance 720 ml 350 ml Exam General: WN/WD/NAD, AOx 2-3 psych HEENT: Unicetric/atraumatic/EOMI (follow commands) NECK: JVD elevated, no thyromegaly Lymph: no lymphadenopathy HEART: regular with no S3, II/ systolic murmur at apex, PMI L LUNGS: Coarse sounds ABD: soft, NT, ND, +BS : Intact Neuro: non focal SKIN: chronic changes EXT: trace edema Results Result Diagram: 05/01/17 0740 05/02/17 0753 Results 24 hrs Laboratory Tests Test 05/02/17 07:53 Sodium Level 139 Potassium Level 4.6 Chloride Level 105 Carbon Dioxide Level 28 Anion Gap 11 Blood Urea Nitrogen 29 H Creatinine 1.28 H Glucose Level 74 Calcium Level 9.0 Phosphorus Level 4.2 Magnesium Level 2.0 Medications Medications Current Medications Aspirin (Aspirin) 81 mg DAILY PO Last administered on 05/02/17 08:38; Admin Dose 81 MG; Start 04/29/17 at 09:00 Ondansetron HCl (Zofran Inj) 4 mg Q6H PRN IV NAUSEA AND/OR VOMITING; Start 04/05 at 07:30 Acetaminophen (Tylenol Tab) 650 mg Q6H PRN PO PAIN AND OR ELEVATED TEMP Last administered on 04/29/17 10:01; Admin Dose 650 MG; Start 04/29/17 at 07:30 Pantoprazole (Protonix Tab) 40 mg DAILY@06 PO Last administered on 05/02/17 06:47; Admin Dose 40 MG; Start 04/30/17 at 06:00 Nitroglycerin (Nitroglycerin (Sl Tab) 0.4 Mg) 1 tab Q5M PRN SL ANGINA Last administered on 04/29/17 17:50; Admin Dose 1 TAB; Start 04/29/17 at 07:30 Albuterol (Ventolin Hfa) 2 puff Q6 INH Last administered on 05/02/17 06:48; Admin Dose 2 PUFF; Start 04/29/17 at 09:00 Carvedilol (Coreg) 3.125 mg BID PO Last administered on 05/01/17 21:17; Admin Dose 3.125 MG; Start 04/29/17 at 09:00 Magnesium Oxide (Mag-Ox 400) 400 mg DAILY PO Last administered on 05/02/17 08 :38; Admin Dose 400 MG; Start 04/29/17 at 09:00 Benazepril HCl (Lotensin) 10 mg DAILY PO Last administered on 05/01/17 08:33 ; Admin Dose 10 MG; Start 04/29/17 at 09:00 Isosorbide Dinitrate (Isordil) 10 mg TID PO Last administered on 05/01/17 21: 17; Admin Dose 10 MG; Start 04/29/17 at 21:00 Acetaminophen/ Hydrocodone Bitart ([place] (5/325)) 1 tab Q4H PRN PO PAIN LEVEL 4 -6 Last administered on 04/30/17 08:40; Admin Dose 1 TAB; Start 04/29/17 at 15:00 Morphine Sulfate (morphine) 2 mg Q4H PRN IV PAIN LEVEL 8-10; Start 04/29/17 at 15:00 Quetiapine Fumarate (Seroquel) 50 mg HS PO Last administered on 05/01/17 21: 18; Admin Dose 50 MG; Start 04/29/17 at 21:00 Mirtazapine (Remeron) 15 mg HS PO Last administered on 05/01/17 21:16; Admin Dose 15 MG; Start 04/29/17 at 21:00 Bismuth Subsalicylate (Pepto-Bismol) 30 ml Q6H PRN PO GASTROINTESTINAL UPSET; Start 04/30/17 at 10:00 Al Hydrox/Mg Hydrox/Simethicone (Mag-Al Plus) 30 ml Q4H PRN PO GASTROINTESTINAL UPSET Last administered on 05/02/17 08:38; Admin Dose 30 ML; Start 04/30/17 at 10:00 SERINA HOLDER MD May 02, 2017 13:39
--- NOTE | 2017-05-02 16:53 | PN ---
Date/Time of Note Date/Time of Note DATE: 05/02/17 TIME: 16:48 Assessment/Plan VTE Prophylaxis VTE Prophylaxis Intervention: other Lines/Catheters IV [facility] Saline Lock Assessment/Plan Chief Complaint/Hosp Course 42 y/o with 1 Shortness of breath, dyspnea on exertion, orthopnea, likely secondary to [id number] systolic congestive heart failure. 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 2. Chest pain, rule out acute coronary syndrome given the history of cocaine use s/p . stress test with nonreversible perfusion defect in the apex, anterior, lateral and inferior curran.Severe hypokinesis of the dilated left ventricle. The left ventricle ejection fraction at stress is 11%. 3. Bilateral lower extremity cramping. U/S negative 4. Hypertension. 5. History of drug use, cocaine use. 6. Noncompliance. 7. Marijuana use. 8. Amphetamine use 9 BINTA likely due to overdiuresis Recs - Pt refused AICD and fails to understand about his heart disease , said he cannot see that his heart is not pumping good and said that he stopped his drugs long time ago - c/w benazepril/ASA/ Coreg/statin - Hold Lasix for now, check UA - ECHO EF 20% - Cocaine cessation - c/w peptobisbol/PPI - Appreciate cards consult - sw consult Problems: Subjective 24 Hr Interval Summary Free Text/Dictation Pt refusing AICD and explained to him about his disease, risk of sudden and his EF only 20% but pt fails to understand ans says he cannot see from outside that heart is inor pumping good and he stopped drugs long time ago Exam/Review of Systems Vital Signs Vitals Vital Signs Date Time Temp Pulse Resp B/P Pulse Ox O2 Delivery O2 Flow Rate FiO2 05/02/17 16:10 76 05/02/17 11:39 98.1 18 115/72 100 04/30/17 20:00 Nasal Cannula 2.0 Intake and Output 05/01/17 05/01/17 05/02/17 14:59 22:59 06:59 Intake Total 720 ml 350 ml Balance 720 ml 350 ml Exam GENERAL: The patient is awake, alert, oriented -[place] gentleman, appears to be in mild distress secondary to pain. HEENT: Pupils equal, round, reactive to light. NECK: Supple. JVD. HEART: Regular rate and rhythm. No murmur, rub or gallop. LUNGS: Decreased breath sounds bilaterally. ABDOMEN: Soft, nontender, nondistended. BREASTS: The patient has gynecomastia. EXTREMITIES: No clubbing, cyanosis or edema. NEUROLOGIC: Nonfocal. Results Result Diagram: 05/01/17 0740 05/02/17 0753 Results 24 hrs Laboratory Tests Test 05/02/17 07:53 Sodium Level 139 Potassium Level 4.6 Chloride Level 105 Carbon Dioxide Level 28 Anion Gap 11 Blood Urea Nitrogen 29 H Creatinine 1.28 H Glucose Level 74 Calcium Level 9.0 Phosphorus Level 4.2 Magnesium Level 2.0 Medications Medications Current Medications Aspirin (Aspirin) 81 mg DAILY PO Last administered on 05/02/17 08:38; Admin Dose 81 MG; Start 04/29/17 at 09:00 Ondansetron HCl (Zofran Inj) 4 mg Q6H PRN IV NAUSEA AND/OR VOMITING; Start 04/05 at 07:30 Acetaminophen (Tylenol Tab) 650 mg Q6H PRN PO PAIN AND OR ELEVATED TEMP Last administered on 04/29/17 10:01; Admin Dose 650 MG; Start 04/29/17 at 07:30 Pantoprazole (Protonix Tab) 40 mg DAILY@06 PO Last administered on 05/02/17 06:47; Admin Dose 40 MG; Start 04/30/17 at 06:00 Nitroglycerin (Nitroglycerin (Sl Tab) 0.4 Mg) 1 tab Q5M PRN SL ANGINA Last administered on 04/29/17 17:50; Admin Dose 1 TAB; Start 04/29/17 at 07:30 Albuterol (Ventolin Hfa) 2 puff Q6 INH Last administered on 05/02/17 12:00; Admin Dose 2 PUFF; Start 04/29/17 at 09:00 Carvedilol (Coreg) 3.125 mg BID PO Last administered on 05/01/17 21:17; Admin Dose 3.125 MG; Start 04/29/17 at 09:00 Magnesium Oxide (Mag-Ox 400) 400 mg DAILY PO Last administered on 05/02/17 08 :38; Admin Dose 400 MG; Start 04/29/17 at 09:00 Benazepril HCl (Lotensin) 10 mg DAILY PO Last administered on 05/01/17 08:33 ; Admin Dose 10 MG; Start 04/29/17 at 09:00 Isosorbide Dinitrate (Isordil) 10 mg TID PO Last administered on 05/01/17 21: 17; Admin Dose 10 MG; Start 04/29/17 at 21:00 Acetaminophen/ Hydrocodone Bitart ([place] (5/325)) 1 tab Q4H PRN PO PAIN LEVEL 4 -6 Last administered on 04/30/17 08:40; Admin Dose 1 TAB; Start 04/29/17 at 15:00 Morphine Sulfate (morphine) 2 mg Q4H PRN IV PAIN LEVEL 8-10; Start 04/29/17 at 15:00 Quetiapine Fumarate (Seroquel) 50 mg HS PO Last administered on 05/01/17 21: 18; Admin Dose 50 MG; Start 04/29/17 at 21:00 Mirtazapine (Remeron) 15 mg HS PO Last administered on 05/01/17 21:16; Admin Dose 15 MG; Start 04/29/17 at 21:00 Bismuth Subsalicylate (Pepto-Bismol) 30 ml Q6H PRN PO GASTROINTESTINAL UPSET; Start 04/30/17 at 10:00 Al Hydrox/Mg Hydrox/Simethicone (Mag-Al Plus) 30 ml Q4H PRN PO GASTROINTESTINAL UPSET Last administered on 05/02/17 08:38; Admin Dose 30 ML; Start 04/30/17 at 10:00 FANNY REGAN MD May 02, 2017 16:53
[2017-05-02] MEDS: MIRTAZAPINE 15 MG TAB PO SCH (21:18)
[2017-05-02] MEDS: QUETIAPINE 25 MG TAB PO SCH (21:18)
[2017-05-03] VITALS (10 sets, daily range): BP systolic 105–128; BP diastolic 50–64; PULSE 65–78; RESP 18–20
[2017-05-03] MEDS: ALBUTEROL HFA 8 GM INHALER INH SCH ×3 (05:28→12:02)
[2017-05-03] MEDS: PANTOPRAZOLE (EC) 40 MG TAB PO SCH (05:28)
[2017-05-03 08:12] LABS: CALCIUM 8.7 mg/dl (8.4-10.2); CREATININE 1.3 mg/dl (0.61-1.24); POTASSIUM 4.7 mmol/L (3.5-5.1)
[2017-05-03] MEDS: ISOSORBIDE DINITRATE 10 MG TAB PO SCH ×2 (08:12→12:01)
[2017-05-03] MEDS: BENAZEPRIL 10 MG TAB PO SCH ×2 (08:13→08:14)
[2017-05-03] MEDS: ASPIRIN 81 MG TAB PO SCH (08:14)
[2017-05-03] MEDS: MAGNESIUM OXIDE 400 MG TAB PO SCH (08:14)
[2017-05-03] MEDS: AL HYDROX/MG HYDROX/SIMETH 30 ML CUP PO PRN (12:05)
--- NOTE | 2017-05-03 14:28 | PN ---
JOANNE PINEDAA 05/03/17 1427: Date/Time of Note Date/Time of Note DATE: 05/03/17 TIME: 14:26 Assessment/Plan VTE Prophylaxis VTE Prophylaxis Intervention: ambulation Lines/Catheters IV [facility] [place] Assessment/Plan Chief Complaint/Hosp Course 1 Shortness of breath, dyspnea on exertion, orthopnea, likely secondary to [id number] systolic congestive heart failure. 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 2. Chest pain, rule out acute coronary syndrome given the history of cocaine use s/p . stress test with nonreversible perfusion defect in the apex, anterior, lateral and inferior curran.Severe hypokinesis of the dilated left ventricle. The left ventricle ejection fraction at stress is 11%. 3. Bilateral lower extremity cramping. U/S negative 4. Hypertension. 5. History of drug use, cocaine use. 6. Non-compliance. 7. Marijuana use. 8. Amphetamine use 9 BINTA likely due to overdiuresis Problems: Assessment/Plan 1. Discharge home 2. Pt refused ACID 3. he has a risk for sudden due to cardiomyopathy 4. place a phone call dr Islas 5. Pt needs to see cardiology per insurance Subjective 24 Hr Interval Summary Respiratory: shortness of breath Exam/Review of Systems Vital Signs Vitals Vital Signs Date Time Temp Pulse Resp B/P Pulse Ox O2 Delivery O2 Flow Rate FiO2 05/03/17 12:10 68 05/03/17 11:55 98.0 18 111/64 100 04/30/17 20:00 Nasal Cannula 2.0 Intake and Output 05/02/17 05/02/17 05/03/17 15:00 23:00 07:00 Intake Total 800 ml 600 ml Balance 800 ml 600 ml Exam Constitutional: alert, oriented Respiratory: diminished breath sounds Cardiovascular: regular rate and rhythm Results Result Diagram: 05/01/17 0740 05/03/17 0718 Results 24 hrs Laboratory Tests Test 05/02/17 16:40 05/03/17 07:18 Troponin I 0.051 Sodium Level 141 Potassium Level 4.7 Chloride Level 106 Carbon Dioxide Level 30 Anion Gap 10 Blood Urea Nitrogen 26 H Creatinine 1.30 H Glucose Level 85 Calcium Level 8.7 Medications Medications Current Medications Aspirin (Aspirin) 81 mg DAILY PO Last administered on 05/03/17t 08:14; Admin Dose 81 MG; Start 04/29/17 at 09:00 Ondansetron HCl (Zofran Inj) 4 mg Q6H PRN IV NAUSEA AND/OR VOMITING; Start 04/05 at 07:30 Acetaminophen (Tylenol Tab) 650 mg Q6H PRN PO PAIN AND OR ELEVATED TEMP Last administered on 04/29/17 10:01; Admin Dose 650 MG; Start 04/29/17 at 07:30 Pantoprazole (Protonix Tab) 40 mg DAILY@06 PO Last administered on 05/03/17 05:28; Admin Dose 40 MG; Start 04/30/17 at 06:00 Nitroglycerin (Nitroglycerin (Sl Tab) 0.4 Mg) 1 tab Q5M PRN SL ANGINA Last administered on 04/29/17 17:50; Admin Dose 1 TAB; Start 04/29/17 at 07:30 Albuterol (Ventolin Hfa) 2 puff Q6 INH Last administered on 05/03/17 12:02; Admin Dose 2 PUFF; Start 04/29/17 at 09:00 Carvedilol (Coreg) 3.125 mg BID PO Last administered on 05/01/17 21:17; Admin Dose 3.125 MG; Start 04/29/17 at 09:00 Magnesium Oxide (Mag-Ox 400) 400 mg DAILY PO Last administered on 05/03/17 08 :14; Admin Dose 400 MG; Start 04/29/17 at 09:00 Benazepril HCl (Lotensin) 10 mg DAILY PO Last administered on 05/01/17 08:33 ; Admin Dose 10 MG; Start 04/29/17 at 09:00 Isosorbide Dinitrate (Isordil) 10 mg TID PO Last administered on 05/03/17 12: 01; Admin Dose 10 MG; Start 04/29/17 at 21:00 Acetaminophen/ Hydrocodone Bitart ([place] (5/325)) 1 tab Q4H PRN PO PAIN LEVEL 4 -6 Last administered on 04/30/17 08:40; Admin Dose 1 TAB; Start 04/29/17 at 15:00 Morphine Sulfate (morphine) 2 mg Q4H PRN IV PAIN LEVEL 8-10; Start 04/29/17 at 15:00 Quetiapine Fumarate (Seroquel) 50 mg HS PO Last administered on 05/02/17 21: 18; Admin Dose 50 MG; Start 04/29/17 at 21:00 Mirtazapine (Remeron) 15 mg HS PO Last administered on 05/02/17 21:18; Admin Dose 15 MG; Start 04/29/17 at 21:00 Bismuth Subsalicylate (Pepto-Bismol) 30 ml Q6H PRN PO GASTROINTESTINAL UPSET; Start 04/30/17 at 10:00 Al Hydrox/Mg Hydrox/Simethicone (Mag-Al Plus) 30 ml Q4H PRN PO GASTROINTESTINAL UPSET Last administered on 05/03/17 12:05; Admin Dose 30 ML; Start 04/30/17 at 10:00 FANNY REGAN MD 05/03/17 1619: Assessment/Plan Assessment/Plan Assessment/Plan dc home if cleared by cards Exam/Review of Systems Results Result Diagram: 05/01/17 0740 05/03/17 0718 SAKINA PINEDA May 03, 2017 14:27 FANNY REGAN MD May 03, 2017 16:19
--- NOTE | 2017-05-03 15:04 | PDOCDIS ---
Discharge Instructions CONDITION Patient Condition: Stable HOME CARE INSTRUCTIONS: Special Diet: cardiac diet ACTIVITY: Activity Restrictions: Slowly Increase Activity FOLLOW UP/APPOINTMENTS Follow-up Plan PCP 1 week, follow with cardiology per insurance coverage SCHOOL/WORK RELEASE May return to School/Work with: With Restrictions SAKINA PINEDA May 03, 2017 15:04
[2017-05-03] MEDS ORDERED: NITR0.4T32 SL (15:12)
[2017-05-03] MEDS ORDERED: ASPI81TA3 PO (15:12)
[2017-05-03] MEDS ORDERED: ISOS10TA2 PO (15:12)
[2017-05-03] MEDS ORDERED: MIRT15TA5 PO (15:12)
[2017-05-03] MEDS ORDERED: QUET25TA33 PO (15:12)
[2017-05-03] MEDS ORDERED: ALBU18HF INH (15:17)
[2017-05-03] MEDS ORDERED: CARV3.1260 PO (15:17)
[2017-05-03] MEDS ORDERED: FURO40TA4 PO (15:17)
--- NOTE | 2017-05-03 15:24 | DS ---
Date/Time of Note Date/Time of Note DATE: 05/03/17 TIME: 15:22 Discharge Summary Admission/Discharge Info Admit Date/Time Apr 29, 2017 at 05:16 Discharge Date/Time Discharge Diagnosis Shortness of breath Patient Condition: Stable Consults [facility] cardiology Procedures echocardiogram Hospital Course This is a 42-year-old male who has a very strong positive history of cocaine abuse for the last 3 to 4 years, history of amphetamine use, who according to him, was diagnosed with CHF 2 years ago, presented to the emergency department at [facility] complaining of chest pain for a few days, and also dyspnea on exertion. According to the patient, he was diagnosed a few years ago , at [facility], with CHF. He was told that he had really bad heart. He was started on some medications like Lasix, Coumadin and spironolactone; however, he said that since he got discharged from the hospital, he never took any medications. He is very noncompliant. For the last few weeks, the patient has been noticing intermittent left-sided chest pains, sharp, pressure-like, staying all day long and had been having dyspnea on exertion that made him come to the emergency department at [facility]. The patient said that dyspnea on exertion was worse when he used to walk. He has been currently on disability. also been having cough and was taking some [place]. He denies any complaints of orthopnea. Denies any lower extremity edema. On arrival to [facility], vital signs were stable. The patient had EKG that showed T- wave inversions in lead V2, V4. Patient had troponin that was negative. The patient was sent in to [facility] for insurance reasons. On my examination, currently, patient said that he had been having intermittent left-sided chest pains for past few days, which is exertional in nature. Patient has also been noticing bilateral lower extremity leg cramping. The patient also has history of schizophrenia and has not been taking Seroquel and Remeron for past few days. 1 Shortness of breath, dyspnea on exertion, orthopnea, likely secondary to [id number] systolic congestive heart failure. 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 2. Chest pain, rule out acute coronary syndrome given the history of cocaine use s/p . stress test with nonreversible perfusion defect in the apex, anterior, lateral and inferior curran.Severe hypokinesis of the dilated left ventricle. The left ventricle ejection fraction at stress is 11%. 3. Bilateral lower extremity cramping. U/S negative 4. Hypertension. 5. History of drug use, cocaine use. 6. Non-compliance. 7. Marijuana use. 8. Amphetamine use 9 BINTA likely due to overdiuresis Patient was kept on telemetry service during hospitalization, his electrolytes got stabilized, medications tailored to his needs. Pt was offered ACID but he refused it. Impressions: 1. Pt has a risk for sudden due to cardiomyopathy 2. Pt needs to see cardiology often Home Meds Active Scripts Furosemide* (Furosemide*) 40 Mg Tablet, 40 MG PO DAILY for 30 Days, TAB Prov:SAKINA PINEDA 05/03/17 Carvedilol* (Carvedilol*) 3.125 Mg Tablet, 3.125 MG PO BID for 30 Days, TAB Prov:SAKINA PINEDA 05/03/17 Albuterol Sulfate* (Ventolin HFA*) 18 Gm Hfa.aer.ad, 2 PUFF INH Q6 for 30 Days Prov:SAKINA PINEDA 05/03/17 Quetiapine Fumarate* (Quetiapine Fumarate*) 25 Mg Tablet, 50 MG PO HS for 30 Days, TAB Prov:SAKINA PINEDA 05/03/17 Nitroglycerin* (Nitroglycerin* SL) 0.4 Mg Tab.subl, 1 TAB SL Q5M Y for ANGINA for 30 Days Prov:SAKINA PINEDA 05/03/17 Mirtazapine* (Mirtazapine*) 15 Mg Tablet, 15 MG PO HS for 30 Days, TAB Prov:SAKINA PINEDA 05/03/17 Isosorbide Dinitrate* (Isordil*) 10 Mg Tablet, 10 MG PO TID for 30 Days, TAB Prov:SAKINA PINEDA 05/03/17 Aspirin (Aspirin) 81 Mg Chew, 81 MG PO DAILY for 30 Days, TAB Prov:SAKINA PINEDA 05/03/17 Reported Medications Magnesium Oxide* (Mag-Oxide*) 400 Mg Tablet, 400 MG PO DAILY, TAB 04/29/17 Ramipril (Altace) 2.5 Mg Capsule, 2.5 MG PO DAILY, CAP 04/29/17 Discontinued Reported Medications Albuterol Sulfate* (Proair HFA*) 8.5 Gm Hfa.aer.ad, 2 PUFF INH Q6, #1 INHALER 04/29/17 Warfarin Sod (Coumadin) 5 Mg Tab, 5 MG PO DAILY, TAB 04/29/17 Furosemide* (Furosemide*) 40 Mg Tablet, 40 MG PO BID, TAB 04/29/17 Spironolactone* (Spironolactone*) 100 Mg Tablet, 25 MG PO DAILY, TAB 04/29/17 Carvedilol* (Coreg*) 3.125 Mg Tablet, 3.125 MG PO BID, #60 TAB 04/29/17 Follow-up Plan PCP 1 week, follow with cardiology per insurance coverage Primary Care Provider Moise Nina Time spent on discharge: < 30 minutes Pending Labs Laboratory Tests Test 05/02/17 16:40 05/03/17 07:18 Troponin I 0.051ng/ml (0.00-0.12) Sodium Level 141mmol/L (135-144) Potassium Level 4.7mmol/L (3.5-5.1) Chloride Level 106mmol/L (97-110) Carbon Dioxide Level 30mmol/L (21-31) Anion Gap 10 (8-16) Blood Urea Nitrogen 26mg/dl (7-20) Creatinine 1.30mg/dl (0.61-1.24) Glucose Level 85mg/dl (70-220) Calcium Level 8.7mg/dl (8.4-10.2) SAKINA PINEDA May 03, 2017 15:24
--- NOTE | 2017-05-03 17:27 | CONS ---
Date/Time of Note Date/Time of Note DATE: 05/03/17 TIME: 17:18 Assessment/Plan Assessment/Plan Chief Complaint/Hosp Course IMP: 1.cardiomyopathy-with severe LV dysfunction 2.Chest pain-resolved. Lexiscan with scar . no ischemia 3.Renal insufficiency 4. CHF-systolic acute on chronic. Good volume status by exam currently 5. NSVT-longest 4 beats. Refuded ICD at this time or life vest. mg 2.0 05/02 with K>4.0 today Recc: -Tele -serial ecg's -Continue current BB/ACEI as tolerated -would start low dose daily lasix to assure good volume status -Continmue low dose isordil as tolerated -Given info for outpatient f/u with myself -OK for d/c from cardiac standpoint Problems: Consultation Date/Type/Reason Admit Date/Time Apr 29, 2017 at 05:16 Initial Consult Date 04/29/17 Type of Consultation: cardiology Reason for Consultation CHF/cardiomyopathy Referring Provider: FANNY REGAN MD Exam/Review of Systems Vital Signs Vitals Vital Signs Date Time Temp Pulse Resp B/P Pulse Ox O2 Delivery O2 Flow Rate FiO2 05/03/17 16:04 78 05/03/17 16:01 98.0 20 128/61 100 04/30/17 20:00 Nasal Cannula 2.0 Intake and Output 05/02/17 05/02/17 05/03/17 15:00 23:00 07:00 Intake Total 800 ml 600 ml Balance 800 ml 600 ml Exam Review of Systems: CONSTITUTIONAL: No fevers, chills. PULMONARY: No sob CARDIOVASCULAR: No chest pain/palpitations GASTROINTESTINAL: No nausea/vomiting. GENITOURINARY: No hematuria/dysuria. MUSCULOSKELETAL: No myagias/arthalgias. PSYCHIATRIC: The patient denies depression. NEUROLOGIC: No weakness Constitutional: alert, oriented Psych: no complaints Head: normocephalic ENMT: mucosa pink and moist Neck: jvd (8 cm water), supple Respiratory: diminished breath sounds Cardiovascular: regular rate and rhythm Gastrointestinal: non-tender, soft Musculoskeletal: muscle tone (normal) Extremities: edema (none) Neurological: other (No focal deficits) Results Result Diagram: 05/01/17 0740 05/03/17 0718 Results 24 hrs Laboratory Tests Test 05/03/17 07:18 Sodium Level 141 Potassium Level 4.7 Chloride Level 106 Carbon Dioxide Level 30 Anion Gap 10 Blood Urea Nitrogen 26 H Creatinine 1.30 H Glucose Level 85 Calcium Level 8.7 Medications Medications Current Medications Aspirin (Aspirin) 81 mg DAILY PO Last administered on 05/03/17 08:14; Admin Dose 81 MG; Start 04/29/17 at 09:00 Ondansetron HCl (Zofran Inj) 4 mg Q6H PRN IV NAUSEA AND/OR VOMITING; Start 04/05 at 07:30 Acetaminophen (Tylenol Tab) 650 mg Q6H PRN PO PAIN AND OR ELEVATED TEMP Last administered on 04/29/17 10:01; Admin Dose 650 MG; Start 04/29/17 at 07:30 Pantoprazole (Protonix Tab) 40 mg DAILY@06 PO Last administered on 05/03/17 05:28; Admin Dose 40 MG; Start 04/30/17 at 06:00 Nitroglycerin (Nitroglycerin (Sl Tab) 0.4 Mg) 1 tab Q5M PRN SL ANGINA Last administered on 04/29/17 17:50; Admin Dose 1 TAB; Start 04/29/17 at 07:30 Albuterol (Ventolin Hfa) 2 puff Q6 INH Last administered on 05/03/17 12:02; Admin Dose 2 PUFF; Start 04/29/17 at 09:00 Carvedilol (Coreg) 3.125 mg BID PO Last administered on 05/01/17 21:17; Admin Dose 3.125 MG; Start 04/29/17 at 09:00 Magnesium Oxide (Mag-Ox 400) 400 mg DAILY PO Last administered on 05/03/17 08 :14; Admin Dose 400 MG; Start 04/29/17 at 09:00 Benazepril HCl (Lotensin) 10 mg DAILY PO Last administered on 05/01/17 08:33 ; Admin Dose 10 MG; Start 04/29/17 at 09:00 Isosorbide Dinitrate (Isordil) 10 mg TID PO Last administered on 05/03/17 12: 01; Admin Dose 10 MG; Start 04/29/17 at 21:00 Acetaminophen/ Hydrocodone Bitart ([place] (5/325)) 1 tab Q4H PRN PO PAIN LEVEL 4 -6 Last administered on 04/30/17 08:40; Admin Dose 1 TAB; Start 04/29/17 at 15:00 Morphine Sulfate (morphine) 2 mg Q4H PRN IV PAIN LEVEL 8-10; Start 04/29/17 at 15:00 Quetiapine Fumarate (Seroquel) 50 mg HS PO Last administered on 05/02/17 21: 18; Admin Dose 50 MG; Start 04/29/17 at 21:00 Mirtazapine (Remeron) 15 mg HS PO Last administered on 05/02/17 21:18; Admin Dose 15 MG; Start 04/29/17 at 21:00 Bismuth Subsalicylate (Pepto-Bismol) 30 ml Q6H PRN PO GASTROINTESTINAL UPSET; Start 04/30/17 at 10:00 Al Hydrox/Mg Hydrox/Simethicone (Mag-Al Plus) 30 ml Q4H PRN PO GASTROINTESTINAL UPSET Last administered on 05/03/17 12:05; Admin Dose 30 ML; Start 04/30/17 at 10:00 MADINA ELIZABETH May 03, 2017 17:27
[2017-05-04] MEDS ORDERED: FUROSEMIDE 20 MG TAB PO SCH (06:00)
[2017-05-04] MEDS ORDERED: BENAZEPRIL 5 MG TAB PO SCH (09:00)
== END 2017-05-03 18:05 | disposition home or self-care (01) | DRG 292 ==
LOC: MS4 05:16
PROVIDERS: ADMIT Internal Medicine Nephrology; ATTEND Internal Medicine Nephrology
DX: I11.0 Hypertensive heart disease with heart failure (principal); N17.9 Acute kidney failure, unspecified; I42.8 Other cardiomyopathies; F20.9 Schizophrenia, unspecified; I42.7 Cardiomyopathy due to drug and external agent; F14.10 Cocaine abuse, uncomplicated; I50.23 Acute on chronic systolic (congestive) heart failure; I25.5 Ischemic cardiomyopathy; R07.9 Chest pain, unspecified; R25.2 Cramp and spasm; E78.5 Hyperlipidemia, unspecified; F15.90 Other stimulant use, unspecified, uncomplicated; Z91.14 Patient's other noncompliance with medication regimen
CPT/HCPCS: 78452; 80048; 80061; 82550; 82553; 83735; 83880; 84100; 84484; 85025; 85610; 87081; 93005; 93017; 93306; 93922; A9500; A9505; J2785

== ENCOUNTER 2017-05-05 21:01 | Emergency (ER) | payer OTHER ==
[~2017-05-05] VITALS: Ht 175.3 cm; Wt 69.4 kg
[~2017-05-05 21:01] MED LIST: ALBU18HF INH; ASPI81TA3 PO; CARV3.1260 PO; FURO40TA4 PO; ISOS10TA2 PO; MAGN400T27 PO; MIRT15TA5 PO; NITR0.4T32 SL; QUET25TA33 PO; RAMI2.5C31 PO
[2017-05-05 21:13] VITALS: Ht 175.3 cm; Wt 69.4 kg
[2017-05-05 22:53] LABS: BASOPHILS % 0.8 % (0.0-2.0); EOSINOPHILS # 0.3 10^3/ul (0.0-0.5); EOSINOPHILS % 5.3 % (0.0-7.0); HEMATOCRIT 41.6 % (42.0-52.0); HEMOGLOBIN 13.8 g/dl (14.0-18.0); LYMPHOCYTES # 0.8 10^3/ul (0.8-2.9); LYMPHOCYTES % 15.8 % (15.0-51.0); MEAN CORPUSCULAR HEMOGLOBIN 30.1 pg (29.0-33.0); MEAN CORPUSCULAR HGB CONC 33.2 g/dl (32.0-37.0); MEAN CORPUSCULAR VOLUME 90.6 fl (82.0-101.0); MEAN PLATELET VOLUME 11.3 fl (7.4-10.4); MONOCYTE # 0.9 10^3/ul (0.3-0.9); MONOCYTES % 18.1 % (0.0-11.0); NEUTROPHIL # 2.8 10^3/ul (1.6-7.5); NEUTROPHILS % 59.8 % (39.0-77.0); PLATELET COUNT 188 10^3/UL (140-415); RED BLOOD COUNT 4.59 10^6/ul (4.70-6.10); RED CELL DISTRIBUTION WIDTH 15.9 % (11.5-14.5); WHITE BLOOD COUNT 4.7 10^3/ul (4.8-10.8)
[2017-05-05 23:14] LABS: ALBUMIN 3.4 g/dl (3.3-4.9); BILIRUBIN,INDIRECT 0.2 mg/dl (0-1.1); BILIRUBIN,TOTAL 0.2 mg/dl (0.2-1.3); CALCIUM 8.6 mg/dl (8.4-10.2); CREATININE 1.09 mg/dl (0.61-1.24); POTASSIUM 4.5 mmol/L (3.5-5.1); TOTAL PROTEIN 6.8 g/dl (6.1-8.1)
--- NOTE | 2017-05-05 23:14 | RADRPT ---
PROCEDURE: XR Chest. CLINICAL INDICATION: Chest pain. TECHNIQUE: AP Portable chest. COMPARISON: None. FINDINGS: Moderate cardiomegaly is identified. The lungs are grossly clear. No pleural effusions are evident. No significant pulmonary vascular congestion or edema is noted. There is a mild to moderate dextro scoliosis of the mid thoracic spine. IMPRESSION: 1. Moderate cardiomegaly. 2. No radiographic evidence of acute cardiopulmonary disease. RPTAT: HJAH .Sachi Foreman MD, MD Date Time Electronically viewed and signed by .Sachi Foreman MD, MD on 05/05/2017 23:14 .H/
[2017-05-05 23:27] LABS: TROPONIN-I 0.047 ng/ml (0.00-0.12)
[2017-05-06] MEDS ORDERED: HYDROCODONE/HOMATROPINE 5ML CUP PO ONE
[2017-05-06] MEDS ORDERED: AZIT250T94 PO (00:14)
[2017-05-06] MEDS ORDERED: PRED20TA PO (00:14)
[2017-05-06] MEDS ORDERED: PROM5SYR2 PO (00:14)
--- NOTE | 2017-05-06 00:21 | ERD ---
ER Documentation Chief Complaint Chief Complaint cough for 2 days HPI This is a 42-year-old male comes in with a cough for 2 days. Denies any nausea denies vomiting denies any chills. Cough is mildly productive for the patient. Patient was recently admitted for CHF. No nausea no vomiting no chills. No other current complaints ROS All systems reviewed and are negative except as per history of present illness. Medications Home Meds Active Scripts Promethazine HCl/Codeine (Prometh-Codein 6.25-10 mg/5 ml) 5 Ml Syrup, 5 ML PO BID for 7 Days Prov:SUZETTE ELDRIDGE 05/06/17 Prednisone* (Prednisone*) 20 Mg Tab, 40 MG PO DAILY for 4 Days, TAB Prov:SUZETTE ELDRIDGE 05/06/17 Azithromycin* (Zithromax*) 250 Mg Tablet, 250 MG PO .ZPACK DIRECTED, #6 TAB TAKE 500 MG (2 TABS) THE FIRST DAY THEN 250 MG (1 TAB) DAYS 2-5 Prov:SUZETTE ELDRIDGE 05/06/17 Furosemide* (Furosemide*) 40 Mg Tablet, 40 MG PO DAILY for 30 Days, TAB Prov:SAKINA PINEDA 05/03/17 Carvedilol* (Carvedilol*) 3.125 Mg Tablet, 3.125 MG PO BID for 30 Days, TAB Prov:SAKINA PINEDA 05/03/17 Albuterol Sulfate* (Ventolin HFA*) 18 Gm Hfa.aer.ad, 2 PUFF INH Q6 for 30 Days Prov:SAKINA PINEDA 05/03/17 Quetiapine Fumarate* (Quetiapine Fumarate*) 25 Mg Tablet, 50 MG PO HS for 30 Days, TAB Prov:SAKINA PINEDA 05/03/17 Nitroglycerin* (Nitroglycerin* SL) 0.4 Mg Tab.subl, 1 TAB SL Q5M Y for ANGINA for 30 Days Prov:SAKINA PINEDA 05/03/17 Mirtazapine* (Mirtazapine*) 15 Mg Tablet, 15 MG PO HS for 30 Days, TAB Prov:SAKINA PINEDA 05/03/17 Isosorbide Dinitrate* (Isordil*) 10 Mg Tablet, 10 MG PO TID for 30 Days, TAB Prov:SAKINA PINEDA 05/03/17 Aspirin (Aspirin) 81 Mg Chew, 81 MG PO DAILY for 30 Days, TAB Prov:MILTONSAKINA 05/03/17 Reported Medications Magnesium Oxide* (Mag-Oxide*) 400 Mg Tablet, 400 MG PO DAILY, TAB 04/29/17 Ramipril (Altace) 2.5 Mg Capsule, 2.5 MG PO DAILY, CAP 04/29/17 Discontinued Reported Medications Albuterol Sulfate* (Proair HFA*) 8.5 Gm Hfa.aer.ad, 2 PUFF INH Q6, #1 INHALER 04/29/17 Warfarin Sod (Coumadin) 5 Mg Tab, 5 MG PO DAILY, TAB 04/29/17 Furosemide* (Furosemide*) 40 Mg Tablet, 40 MG PO BID, TAB 04/29/17 Spironolactone* (Spironolactone*) 100 Mg Tablet, 25 MG PO DAILY, TAB 04/29/17 Carvedilol* (Coreg*) 3.125 Mg Tablet, 3.125 MG PO BID, #60 TAB 04/29/17 Allergies Allergies: Coded Allergies: No Known Drug Allergies (Verified Allergy, Unknown, 04/29/17) PMhx/Soc Medical and Surgical Hx: pt denies Medical Hx History of Surgery: No Anesthesia Reaction: No Hx Neurological Disorder: No Hx Respiratory Disorders: No Hx Cardiac Disorders: Yes (chf) Hx Psychiatric Problems: Yes (SCHIZOPHRENIA, BIPOLAR, DEPRESSION AND ANXIETY) Hx Miscellaneous Medical Probl: Yes (anxiety) Hx Alcohol Use: No Hx Substance Use: No Hx Tobacco Use: No Smoking Status: Never smoker Physical Exam Vitals Vital Signs Date Time Temp Pulse Resp B/P Pulse Ox O2 Delivery O2 Flow Rate FiO2 05/05/17 21:13 100.0 89 16 114/66 97 Physical Exam Const: [] Head: Atraumatic Eyes: Normal Conjunctiva ENT: Normal External Ears, Nose and Mouth. Neck: Full range of motion..~ No meningismus. Resp: Clear to auscultation bilaterally Cardio: Regular rate and rhythm, no murmurs Abd: Soft, non tender, non distended. Normal bowel sounds Skin: No petechiae or rashes Back: No midline or flank tenderness Ext: No cyanosis, or edema Neur: Awake and alert Psych: Normal Mood and Affect Result Diagram: 05/05/17223905/05/172239 Results 24 hrs Laboratory Tests Test 05/05/17 22:40 White Blood Count 4.710^3/ul Red Blood Count 4.5910^6/ul Hemoglobin 13.8g/dl Hematocrit 41.6% Mean Corpuscular Volume 90.6fl Mean Corpuscular Hemoglobin 30.1pg Mean Corpuscular Hemoglobin Concent 33.2g/dl Red Cell Distribution Width 15.9% Platelet Count 73267^3/UL Mean Platelet Volume 11.3fl Neutrophils % 59.8% Lymphocytes % 15.8% Monocytes % 18.1% Eosinophils % 5.3% Basophils % 0.8% Nucleated Red Blood Cells % 0.0/100WBC Neutrophils # 2.810^3/ul Lymphocytes # 0.810^3/ul Monocytes # 0.910^3/ul Eosinophils # 0.310^3/ul Basophils # 0.010^3/ul Nucleated Red Blood Cells # 0.010^3/ul Sodium Level 139mmol/L Potassium Level 4.5mmol/L Chloride Level 105mmol/L Carbon Dioxide Level 27mmol/L Anion Gap 12 Blood Urea Nitrogen 14mg/dl Creatinine 1.09mg/dl Glucose Level 81mg/dl Calcium Level 8.6mg/dl Total Bilirubin 0.2mg/dl Direct Bilirubin 0.00mg/dl Indirect Bilirubin 0.2mg/dl Aspartate Amino Transf (AST/SGOT) 97IU/L Alanine Aminotransferase (ALT/SGPT) 96IU/L Alkaline Phosphatase 101IU/L Troponin I 0.047ng/ml B-Type Natriuretic Peptide 959PG/ML Total Protein 6.8g/dl Albumin 3.4g/dl Globulin 3.40g/dl Albumin/Globulin Ratio 1.00 Lipase 454U/L Current Medications Medications (Trade) Dose Ordered Sig/Alia Route PRN Reason Start Time Stop Time Status Last Admin Dose Admin Hydrocodone Bit/ Homatropine Methylb (Hycodan Liquid) 5 ml ONCE ONCE PO 05/06/17 00:00 05/06/17 00:01 DC 05/06/17 00:13 Ibuprofen (Motrin) 400 mg ONCE ONCE PO 05/06/17 00:30 05/06/17 00:31 05/06/17 00:13 Procedures/MDM EKG: Rate/Rhythm: [Normal Sinus Rhythm] QRS, ST, T-waves: [No changes consistent w/ acute ischemia] Impression: [No evidence of ischemia or arrhythmia]\ Chest X-ray 1V Interpreted by me: Soft Tissue: No acute abnormalities Bones: No acute abnormalities Mediastinum/Cardiac Silhouette/Lungs: [No acute abnormalities] Medical decision-makin-year-old male with a cough, likely bronchitic in nature. No evidence of CHF. Well-appearing. Patient be discharged with azithromycin, prednisone, cough syrup. Follow with PCP. Return for worsening symptoms. Departure Diagnosis: Primary Impression: Cough Condition: Stable Patient Instructions: Bronchitis, Antiobiotic Treatment (Adult) SUZETTE ELDRIDGE May 06, 2017 00:21
[2017-05-06] MEDS ORDERED: IBUPROFEN 200 MG TAB PO ONE (00:30)
[2017-05-06] MEDS ORDERED: CEFTRIAXONE 1 GM/50 ML (PMX) 50 ML IVPB ONE (00:30)
[2017-05-06] MEDS ORDERED: NITR0.4T32 SL (00:32)
[2017-05-06 00:36] VITALS: BP 118/77; PULSE 71; RESP 18
== END 2017-05-06 00:40 | disposition home or self-care (01) ==
LOC: E/R 21:01
DX: J20.9 Acute bronchitis, unspecified (principal); I50.9 Heart failure, unspecified; R06.02 Shortness of breath; Z79.01 Long term (current) use of anticoagulants
CPT/HCPCS: 36415; 71010; 80053; 83690; 83880; 84484; 85025; 93005; 96374; J0696; Z7502; Z7610

== ENCOUNTER 2017-09-23 18:27 | Inpatient (IN) | END 2017-09-27 11:29 | disposition left against medical advice (07) | DRG 293 ==

== ENCOUNTER 2017-11-04 22:13 | Inpatient (IN) | END 2017-11-07 17:55 | disposition home or self-care (01) | DRG 291 ==

== ENCOUNTER 2018-05-23 14:36 | Inpatient (IN) | payer OTHER ==
[~2018-05-23] VITALS: Ht 162.6 cm; Wt 69.0 kg
[~2018-05-23 14:36] MED LIST changes: +ASPI-817 PO; +ASPI-831 PO; -ASPI81TA3 PO; +BENA10TA4 PO; +BISA5TAB6 PO; -ISOS10TA2 PO; +MIRT30TA PO; +QUET300T2 PO; -RAMI2.5C31 PO; +SPIR25TA PO
[2018-05-23 14:41] VITALS: Ht 162.6 cm; Wt 69.0 kg
--- NOTE | 2018-05-23 15:28 | ERD ---
ER Documentation Chief Complaint Chief Complaint SOB "chest tightness"; hasnt taken meds x 1 months HPI 43-year-old male presents for evaluation of shortness of breath and chest tightness. Patient is currently homeless, and he has ran out of meds, he also endorses chest pain. 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 Chest pain is constant, described as tight, he denies nausea vomiting, no diaphoresis, no fever. ROS All systems reviewed and are negative except as per history of present illness. Medications Home Meds Active Scripts Spironolactone* (Aldactone*) 25 Mg Tablet, 25 MG PO DAILY for 28 Days, TAB Prov:CHARI PULIDO MD 11/07/17 Carvedilol* (Carvedilol*) 3.125 Mg Tablet, 3.125 MG PO BID for 28 Days, TAB Prov:CHARI PULIDO MD 11/07/17 Furosemide* (Furosemide*) 40 Mg Tablet, 40 MG PO DAILY for 30 Days, #60 TAB Prov:CHARI PULIDO MD 11/07/17 Reported Medications Diphenhydramine Hcl* (Benadryl*) 50 Mg Cap, 50 MG PO QHS PRN for ITCHING, CAP 05/23/18 Nitroglycerin* (Nitroglycerin* SL) 0.4 Mg Tab.subl, 0.4 MG SL Q5MIN PRN for CHEST PAIN, BOTTLE 05/23/18 Quetiapine Fumarate* (Seroquel*) 300 Mg Tablet, 300 MG PO QHS, TAB 11/04/17 Mirtazapine* (Remeron*) 30 Mg Tablet, 30 MG PO DAILY, TAB 11/04/17 Discontinued Scripts Benazepril Hcl* (Benazepril Hcl*) 10 Mg Tablet, 5 MG PO DAILY for 30 Days, TAB Prov:CHARI PULIDO MD 11/07/17 Aspirin* (Aspirin* EC) 81 Mg Tablet.dr, 81 MG PO DAILY for 30 Days Prov:CHARI PULIDO MD 11/07/17 Bisacodyl* (Bisacodyl*) 5 Mg Tablet.dr, 10 MG PO BID PRN for CONSTIPATION for 28 Days Prov:CHARI PULIDO MD 11/07/17 Albuterol Sulfate* (Ventolin HFA*) 18 Gm Hfa.aer.ad, 2 PUFF INH Q6 for 30 Days, #1 Prov:CHARI PULIDO MD 11/07/17 Magnesium Oxide* (Mag-Oxide*) 400 Mg Tablet, 400 MG PO DAILY, #30 TAB Prov:CHARI PULIDO MD 11/07/17 Nitroglycerin* (Nitroglycerin* SL) 0.4 Mg Tab.subl, 0.4 MG SL Q5MIN PRN for CHEST PAIN, #1 BOTTLE Prov:SUZETTE ELDRIDGE 05/06/17 Carvedilol* (Carvedilol*) 3.125 Mg Tablet, 3.125 MG PO BID for 30 Days, TAB Prov:SAKINA PINEDA 05/03/17 Quetiapine Fumarate* (Quetiapine Fumarate*) 25 Mg Tablet, 50 MG PO HS for 30 Days, TAB Prov:SAKINA PINEDA 05/03/17 Mirtazapine* (Mirtazapine*) 15 Mg Tablet, 15 MG PO HS for 30 Days, TAB Prov:SAKINA PINEDA 05/03/17 Aspirin (Aspirin) 81 Mg Chew, 81 MG PO DAILY for 30 Days, TAB Prov:ASTONTSEVSAKINA Richards 05/03/17 Allergies Allergies: Coded Allergies: No Known Drug Allergies (Verified Allergy, Unknown, 05/23/18) PMhx/Soc History of Surgery: No Anesthesia Reaction: No Hx Neurological Disorder: No Hx Respiratory Disorders: No Hx Cardiac Disorders: Yes (CHF) Hx Psychiatric Problems: Yes (BIPOLAR, SCHIZOPHRENIA & DEPRESSION, depression) Hx Miscellaneous Medical Probl: No Hx Alcohol Use: Yes (occasional) Hx Substance Use: Yes (marijuana, meth ) Hx Tobacco Use: Yes (occasional ) Smoking Status: Current some day smoker Physical Exam Vitals Vital Signs Date Temp Pulse Resp B/P (MAP) Pulse Ox O2 O2 Flow FiO2 Time Delivery Rate 05/23/18 Nasal 14:53 Cannula 05/23/18 98.1 96 19 126/95 100 14:41 (105) Physical Exam Const: No acute distress Head: Atraumatic Eyes: Normal Conjunctiva ENT: Normal External Ears, Nose and Mouth. Neck: Full range of motion. No meningismus. Resp: Crackles bilaterally Cardio: Regular rate and rhythm, no murmurs Abd: Soft, non tender, non distended. Normal bowel sounds Skin: No petechiae or rashes Back: No midline or flank tenderness Ext: No cyanosis, or edema Neur: Awake and alert Psych: Normal Mood and Affect Result Diagram: 05/23/18 1448 05/23/18 1448 Results 24 hrs Laboratory Tests Test 05/23/18 14:48 White Blood Count 9.9 10^3/ul Red Blood Count 4.51 10^6/ul Hemoglobin 13.7 g/dl Hematocrit 40.3 % Mean Corpuscular Volume 89.4 fl Mean Corpuscular Hemoglobin 30.4 pg Mean Corpuscular Hemoglobin Concent 34.0 g/dl Red Cell Distribution Width 15.7 % Platelet Count 266 10^3/UL Mean Platelet Volume 10.5 fl Immature Granulocytes % 0.300 % Neutrophils % 71.5 % Lymphocytes % 21.2 % Monocytes % 5.8 % Eosinophils % 0.6 % Basophils % 0.6 % Nucleated Red Blood Cells % 0.0 /100WBC Immature Granulocytes # 0.030 10^3/ul Neutrophils # 7.1 10^3/ul Lymphocytes # 2.1 10^3/ul Monocytes # 0.6 10^3/ul Eosinophils # 0.1 10^3/ul Basophils # 0.1 10^3/ul Nucleated Red Blood Cells # 0.0 10^3/ul Prothrombin Time 16.8 Sec Prothrombin Time Ratio 1.3 INR International Normalized Ratio 1.35 Sodium Level 135 mmol/L Potassium Level 4.7 mmol/L Chloride Level 105 mmol/L Carbon Dioxide Level 24 mmol/L Anion Gap 6 Blood Urea Nitrogen 17 mg/dl Creatinine 1.20 mg/dl Est Glomerular Filtrat Rate mL/min > 60 mL/min Glucose Level 97 mg/dl Calcium Level 8.3 mg/dl Total Bilirubin 0.5 mg/dl Direct Bilirubin 0.00 mg/dl Indirect Bilirubin 0.5 mg/dl Aspartate Amino Transf (AST/SGOT) 92 IU/L Alanine Aminotransferase (ALT/SGPT) 124 IU/L Alkaline Phosphatase 154 IU/L Troponin I 0.057 ng/ml B-Type Natriuretic Peptide 90423 PG/ML Total Protein 6.0 g/dl Albumin 3.0 g/dl Globulin 3.00 g/dl Albumin/Globulin Ratio 1.00 Current Medications Medications Dose Sig/Alia Start Time Status Last (Trade) Ordered Route PRN Stop Time Admin Dose Reason Admin Furosemide 40 mg ONCE ONCE 05/23/18 DC (Lasix) IV 15:30 05/23/18 15:31 Aspirin 324 mg ONCE ONCE 05/23/18 DC (Aspirin) PO 15:30 05/23/18 15:31 Procedures/MDM 43-year-old male with a history of methamphetamine use, history of CHF presents with chest pain and shortness of breath. Patient is currently homeless, and been without meds for about some time, his workup was consistent with a CHF exacerbation, he is hemodynamically stable, he will be restarted on Lasix, given aspirin, his EKG showed no evidence of ischemia. Less likely aortic dissection, pulmonary embolism, esophageal rupture. I suspect his symptoms are most likely related to drug use and med noncompliance. EKG: Rate/Rhythm: Normal Sinus Rhythm QRS, ST, T-waves: Right bundle branch block, no changes consistent w/ acute ischemia Impression: No evidence of ischemia or arrhythmia Chest X-ray 1V Interpreted by me: Soft Tissue: No acute abnormalities Bones: No acute abnormalities Mediastinum/Cardiac Silhouette/Lungs: CHF Departure Diagnosis: Primary Impression: Shortness of breath Additional Impression: CHF (congestive heart failure) Heart failure type: systolic Heart failure chronicity: unspecified Qualified Codes: I50.20 - Unspecified systolic (congestive) heart failure Condition: Stable DEBI SONG MD May 23, 2018 15:28
[2018-05-23] MEDS ORDERED: FUROSEMIDE 40 MG INJ IV ONE (15:30)
[2018-05-23] MEDS ORDERED: ASPIRIN 81 MG TAB PO ONE (15:30)
[2018-05-23] MEDS ORDERED: NITR0.4T32 SL (15:35)
[2018-05-23] MEDS ORDERED: BEN50 PO (15:37)
--- NOTE | 2018-05-23 16:31 | QN ---
Documentation Comment Seen and examined FANNY REGAN MD May 23, 2018 16:31
[2018-05-23] MEDS ORDERED: ONDANSETRON 4 MG INJ IV PRN (17:00)
[2018-05-23] MEDS ORDERED: HYDROCODONE/APAP (5/325) TAB PO PRN (17:00)
[2018-05-23] MEDS ORDERED: DOCUSATE SODIUM 100 MG CAP PO PRN (17:00)
[2018-05-23] MEDS ORDERED: ACETAMINOPHEN 325 MG TAB PO PRN (17:00)
[2018-05-23 18:55] VITALS: PULSE 94
[2018-05-23 19:05] VITALS: BP 145/101; PULSE 76; RESP 18
--- NOTE | 2018-05-23 19:48 | HP ---
DATE OF ADMISSION: 05/23/2018 REASON FOR ADMISSION: Shortness of breath. HISTORY OF PRESENT ILLNESS: This is a 43-year-old male with a past medical history of hypertension a nd severe cardiomyopathy with EF of 20%, with multiple admissions in the past secondary to CHF nonco mpliance, last admission in 10/2017. He presented to the emergency department complaining of shortne ss of breath for the last 2 days. The patient said that he stopped taking his medications about 1-1/ 2 months ago. For the last 2 days, he has been feeling extremely short of breath. He is unable to l ie down flat. He also notices worsening lower extremity edema. Also, the patient said that he hurts all over. When asked specifically, he says his nipples hurt. According to the patient, he denied a ny fevers or chills. He is still using methamphetamine and marijuana. According to him, he used on . On arrival to ED, vital signs showed blood pressure of 126/95, afebrile, heart rate 96, respirations 19, saturating 100%. LABORATORY DATA: Showed white count 9.9, hemoglobin 13.7, platelet count 266,000. BMP within normal limit. BUN 17, creatinine 1.20, calcium 8.3, AST 92, ALT 124, alkaline phosphatase 154. BNP 107,00 0. Chest x-ray showed bilateral infiltrates. EKG did not show any acute ST- or T-wave changes. The patient received IV Lasix 40 and was admitted for further management. PAST MEDICAL HISTORY: 1. Hypertension. 2. Severe cardiomyopathy, likely not ischemic with EF of 20%, secondary to methamphetamine use. 3. History of drug use. 4. CKD with baseline creatinine 1.2 to 1.3. ALLERGIES: NONE. MEDICATIONS: He was initially on last admission: 1. Coreg 3.125 b.i.d. 2. Lasix 40 b.i.d. 3. Mirtazapine. 4. Quetiapine. 5. Ramipril. 6. Spironolactone. 7. Albuterol. He is currently not taking any of these medications. SOCIAL HISTORY: Still using marijuana and cocaine, did it on . Does not have any desires to stop drugs. FAMILY HISTORY: Noncontributory. REVIEW OF SYSTEMS: The patient complained of shortness of breath for the past 2 days and lower extre mity swelling. Also, the patient complained of episodes of nausea and vomiting and had mild cough. Denied any fevers and chills. Denied any dysuria, hematemesis, melena, or bright red blood per rectu m.. PHYSICAL EXAMINATION: VITAL SIGNS: Currently, blood pressure 126/70 and heart rate 96%. GENERAL: The patient is awake, alert, oriented, and does not appear to be in any acute distress. HEENT: Pupils equal, round, and reactive to light. No JVD appreciated. HEART: Regular rate rhythm, no systolic ejection murmur appreciated. ABDOMEN: Some tenderness present in the epigastrium. Positive bowel sounds. EXTREMITIES: 2+ edema. NEUROLOGIC: Nonfocal. DIAGNOSTIC DATA: Shows white count 9.9, hemoglobin 13.7, platelet count 266,000. BMP within normal limit. BUN 17, creatinine 1.2, AST 92, ALT 124, alkaline phosphatase 154. ASSESSMENT AND PLAN: This is a 43-year-old male presenting with: 1. Shortness of breath and lower extremity edema secondary to congestive heart failure exacerbation; however, cannot rule out underlying pneumonia. 2. Vomiting with abnormal LFTs. Need to rule out any gallbladder etiology. Also, check for lipase. 3. Nonischemic cardiomyopathy. 4. Hypertension. 5. Methamphetamine and marijuana use. 6. Chronic kidney disease, stable. PLAN: At this period of time, the patient will be admitted to telemetry. The patient will be contin ued on aspirin, Lasix, and beta raudel. We will start the patient on antibiotics. Cardiology will be consulted. We will also get an echo. The rest of the treatment will depend on the patient's hosp italization course. We will also get an abdominal ultrasound. Dictated By: FANNY GUZMAN/ALETA Conf#: [id number] DID#: [id number]
[2018-05-23 20:00] VITALS: PULSE 88
[2018-05-23 20:04] VITALS: BP 135/93; PULSE 182; PULSE 82; RESP 18
[2018-05-23] MEDS: FUROSEMIDE 40 MG INJ IV SCH (20:48)
[2018-05-23] MEDS: CEFTRIAXONE 1 GM/50 ML (PMX) 50 ML IVPB SCH (20:48)
[2018-05-23 21:10] VITALS: PULSE 230
[2018-05-24] VITALS (17 sets, daily range): BP systolic 108–138; BP diastolic 70–96; PULSE 74–230; RESP 18–20
[2018-05-24] MEDS: GUAIFENESIN/CODEINE 5ML CUP PO PRN ×2 (01:00→09:04)
[2018-05-24] MEDS ORDERED: LORAZEPAM 4 MG/ML VIAL IV PRN (04:30)
[2018-05-24] MEDS ORDERED: QUETIAPINE 100 MG TAB PO ONE (04:30)
[2018-05-24] MEDS ORDERED: MIRTAZAPINE 15 MG TAB PO ONE (04:30)
[2018-05-24] MEDS: PANTOPRAZOLE 40 MG INJ IV SCH (06:51)
[2018-05-24] MEDS: MIRTAZAPINE 15 MG TAB PO SCH (08:34)
[2018-05-24] MEDS: ASPIRIN 81 MG TAB PO SCH (08:34)
[2018-05-24] MEDS: FUROSEMIDE 40 MG INJ IV SCH ×2 (08:35→21:12)
[2018-05-24] MEDS: CEFTRIAXONE 1 GM/50 ML (PMX) 50 ML IVPB SCH (09:05)
[2018-05-24] MEDS: ENOXAPARIN 40 MG/0.4 ML SYG SC SCH (09:16)
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
[2018-05-24] MEDS ORDERED: MAGNESIUM SULFATE 3 GM in DEXTROSE 5% 100 ML IVPB ONE (20:00)
[2018-05-24] MEDS: QUETIAPINE 100 MG TAB PO SCH (21:12)
[2018-05-25] VITALS (11 sets, daily range): BP systolic 103–132; BP diastolic 64–84; PULSE 79–162; RESP 18–20
[2018-05-25] MEDS: PANTOPRAZOLE 40 MG INJ IV SCH (05:31)
[2018-05-25] MEDS: CEFTRIAXONE 1 GM/50 ML (PMX) 50 ML IVPB SCH (08:21)
[2018-05-25] MEDS: MIRTAZAPINE 15 MG TAB PO SCH (08:21)
[2018-05-25] MEDS: ASPIRIN 81 MG TAB PO SCH (08:21)
[2018-05-25] MEDS: FUROSEMIDE 40 MG INJ IV SCH ×2 (08:22→20:28)
[2018-05-25] MEDS: ENOXAPARIN 40 MG/0.4 ML SYG SC SCH (08:58)
--- NOTE | 2018-05-25 13:29 | CONS ---
Date/Time of Note Date/Time of Note DATE: 05/25/18 TIME: 13:28 Assessment/Plan Assessment/Plan Assessment/Plan 43 yo with non-ischemic cmy - will keep euvolemic # [id number] Result Diagram: 05/25/18 0516 05/25/18 0516 Results 24hrs Laboratory Tests Test 05/25/18 05:16 White Blood Count 6.2 # Red Blood Count 5.13 Hemoglobin 15.2 Hematocrit 44.7 Mean Corpuscular Volume 87.1 Mean Corpuscular Hemoglobin 29.6 Mean Corpuscular Hemoglobin Concent 34.0 Red Cell Distribution Width 16.0 H Platelet Count 269 Mean Platelet Volume 11.3 H Immature Granulocytes % 0.300 Neutrophils % 76.0 Lymphocytes % 13.0 L Monocytes % 7.3 Eosinophils % 2.9 Basophils % 0.5 Nucleated Red Blood Cells % 0.0 Immature Granulocytes # 0.020 Neutrophils # 4.7 Lymphocytes # 0.8 Monocytes # 0.5 Eosinophils # 0.2 Basophils # 0.0 Nucleated Red Blood Cells # 0.0 Sodium Level 141 Potassium Level 3.6 Chloride Level 107 Carbon Dioxide Level 29 Anion Gap 5 Blood Urea Nitrogen 22 H Creatinine 1.25 H Est Glomerular Filtrat Rate mL/min > 60 Glucose Level 104 Calcium Level 8.5 Consultation Date/Type/Reason Admit Date/Time May 23, 2018 at 16:05 Initial Consult Date Exam/Review of Systems Vital Signs Vitals Vital Signs Date Temp Pulse Resp B/P (MAP) Pulse Ox O2 O2 Flow FiO2 Time Delivery Rate 05/25/18 95 12:00 05/25/18 97.8 18 132/79 99 11:12 (96) 05/25/18 Room Air 04:00 05/24/18 2.0 10:52 Intake and Output 05/24/18 05/24/18 05/25/18 1515:00 23:00 07:00 IntakeIntake Total 50 ml 850 ml 746 ml OutputOutput Total 2500 ml 4150 ml BalanceBalance 50 ml -1650 ml -3404 ml Medications Medications Current Medications Ondansetron HCl (Zofran Inj) 4 mg Q6H PRN IV NAUSEA AND/OR VOMITING Last administered on 05/24/18at 04:23; Admin Dose 4 MG; Start 05/23/18 at 17:00 Acetaminophen (Tylenol Tab) 650 mg Q6H PRN PO PAIN LEVEL 1-3 OR FEVER Last administered on 05/24/18 03:46; Admin Dose 650 MG; Start 05/23/18 at 17:00 Acetaminophen/ Hydrocodone Bitart ([place] (5/325)) 1 tab Q6H PRN PO MODERATE PAIN LEVEL 4-6; Start 05/23/18 at 17:00 Docusate Sodium (Colace) 100 mg Q12H PRN PO CONSTIPATION; Start 05/23/18 at 17:00 Pantoprazole (Protonix Iv) 40 mg DAILY@06 IV Last administered on 05/25/18 05:31; Admin Dose 40 MG; Start 05/24/18 at 06:00 Enoxaparin Sodium (Lovenox) 40 mg DAILY SC Last administered on 05/25/18 08:58; Admin Dose 40 MG; Start 05/24/18 at 09:00 Furosemide (Lasix) 40 mg BID IV Last administered on 05/25/18 08:22; Admin Dose 40 MG; Start 05/23/18 at 21:00 Carvedilol (Coreg) 3.125 mg BID PO Last administered on 05/25/18 08:22; Admin Dose 3.125 MG; Start 05/23/18 at 21:00 Aspirin (Aspirin) 81 mg DAILY PO Last administered on 05/25/18 08:21; Admin Dose 81 MG; Start 05/24/18 at 09:00 Ceftriaxone Sodium 50 ml @ 100 mls/hr DAILY IVPB Last administered on 05/25/18 08:21; Admin Dose 100 MLS/HR; Start 05/23/18 at 17:00 Guaifenesin/ Codeine Phosphate (Robitussin Ac Liquid Cup) 10 ml TID PRN PO COUGH Last administered on 05/24/18 09:04; Admin Dose 10 ML; Start 05/23/18 at 23:00 Diphenhydramine HCl (Benadryl) 50 mg TID PRN PO ITCHING; Start 05/24/18 at 04:30 Mirtazapine (Remeron) 30 mg DAILY PO Last administered on 05/25/18 08:21; Admin Dose 30 MG; Start 05/24/18 at 09:00 Quetiapine Fumarate (Seroquel) 300 mg QHS PO Last administered on 1/5/19at 21:12; Admin Dose 300 MG; Start 05/24/18 at 21:00 Lorazepam (Ativan) 1 mg Q6H PRN IV AGITATION/ANXIETY; Start 05/24/18 at 04:30 SERINA HOLDER MD May 25, 2018 13:29
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
--- NOTE | 2018-05-25 14:39 | CONS ---
DATE OF ADMISSION: 05/23/2018 DATE OF CONSULTATION: 05/25/2018 TYPE OF CONSULTATION: Cardiology. REFERRING PHYSICIAN: Emma Regan MD REASON FOR EVALUATION: Shortness of breath. HISTORY OF PRESENT ILLNESS: Mr. De La Torre is a 43-year-old gentleman with a past medical history of hyp ertension, severe cardiomyopathy, nonischemic, EF 15% to 20% with prior history of normal stress test , history of medical noncompliance, history of psychiatric illness, who comes to the hospital now for evaluation of shortness of breath. I have been asked to see the patient in consultation for further cardiac revaluation. The patient appears to be hemodynamically stable. At this particular point, anuj chiu says that he is very fatigued. He did not rule in for acute myocardial infarction. He is hemodyna mically stable and I believe there is some recent drug use. I think for now, conservative therapy is expected. We will keep the patient euvolemic. We will adjust his medications as needed. PAST MEDICAL HISTORY: 1. Hypertension. 2. Severe cardiomyopathy. 3. History of methamphetamine use. 4. History of drug abuse. 5. History of renal insufficiency with baseline creatinine of 1.2. 6. History of medical noncompliance. ALLERGIES: NO KNOWN DRUG ALLERGIES. SOCIAL HISTORY: Has a history of tobacco use, drug and alcohol use. MEDICATIONS: Here include: 1. Quetiapine 300 mg a day. 2. Lovenox subcutaneously. 3. Aspirin 81 mg a day. 4. Atorvastatin. 5. Pantoprazole. 6. Lorazepam. 7. Coreg 3.125 mg p.o. b.i.d. 8. Ondansetron. 9. Hydrocodone. 10. Docusate. REVIEW OF SYSTEMS: CONSTITUTIONAL: No fevers, no chills. Fatigue as described. HEENT: No changes in vision or hearing. CARDIAC: No chest pain reported. RESPIRATORY: No shortness of breath. GASTROINTESTINAL: No nausea, vomiting, diarrhea, constipation. GENITOURINARY: No dysuria, hematuria. NEUROLOGIC: No focal deficits. PSYCHIATRIC: History of psychiatric illness. PHYSICAL EXAMINATION: VITAL SIGNS: Temperature is 97.8, heart rate 95, blood pressure 123/79. GENERAL: He is a well-nourished gentleman, who is alert and oriented x2 to 3, somewhat aware of his condition, but not really willing to provide further history. HEENT: Head is normocephalic, atraumatic. Eyes are anicteric. NECK: Supple. JVD is 6 to 7 cm. There is no lymphadenopathy, no thyromegaly. HEART: Regular. PMI is minimally displaced. There is no S3. LUNGS: Coarse to the bases. ABDOMEN: Distended. Bowel sounds are present. There is no hepatosplenomegaly. GENITOURINARY: Intact. EXTREMITIES: Show no clubbing, cyanosis. Trace edema. LABORATORY DATA: White blood cells 6.2, hemoglobin 15.2, platelets 269. INR is 1.3. Sodium 141, po tassium 3.6, BUN is 22, creatinine 1.25. Troponin is negative at 0.071. ASSESSMENT AND PLAN: 1. Shortness of breath, likely multifactorial. The patient has a history of congestive heart failur e with reduced ejection fraction. Continue . 2. Hypertension. Blood pressure is well optimized now. 3. Premature ventricular contraction. The patient has history of premature ventricular contraction. We will keep electrolytes in range. Beta blockers if tolerate. 4. Psychiatric illness per primary team. Continue to adjust medications as needed. 5. Fatigue. Continue to monitor for signs of fatigue per primary team. I would like to thank Dr. Regan for referring this patient for my evaluation. Dictated By: SERINA HOLDER MD ML/NTS Conf#: [id number] DID#: [id number] CC: MADINA ELIZABETH MD; EMMA REGAN;*EndCC*
--- NOTE | 2018-05-25 17:52 | PN ---
Date/Time of Note Date/Time of Note DATE: 05/25/18 TIME: 17:49 Assessment/Plan VTE Prophylaxis Risk score (from [facility])>0 risk: 4 SCD applied (from [facility]): No SCD contraindicated: other Pharmacological prophylaxis: other Lines/Catheters IV [facility]from [facility] Saline Lock Urinary Cath still in place: No Assessment/Plan Hospital Course 1. SYS CHF 2. abnormal LFTs. 3. Nonischemic cardiomyopathy. 4. Hypertension. 5. Methamphetamine and marijuana use. 6. Chronic kidney disease, stable. 7 LOW EF PLAN DIURETIC Result Diagram: 05/25/18 0516 05/25/18 0516 Results 24hrs Laboratory Tests Test 05/25/18 05:16 White Blood Count 6.2 # Red Blood Count 5.13 Hemoglobin 15.2 Hematocrit 44.7 Mean Corpuscular Volume 87.1 Mean Corpuscular Hemoglobin 29.6 Mean Corpuscular Hemoglobin Concent 34.0 Red Cell Distribution Width 16.0 H Platelet Count 269 Mean Platelet Volume 11.3 H Immature Granulocytes % 0.300 Neutrophils % 76.0 Lymphocytes % 13.0 L Monocytes % 7.3 Eosinophils % 2.9 Basophils % 0.5 Nucleated Red Blood Cells % 0.0 Immature Granulocytes # 0.020 Neutrophils # 4.7 Lymphocytes # 0.8 Monocytes # 0.5 Eosinophils # 0.2 Basophils # 0.0 Nucleated Red Blood Cells # 0.0 Sodium Level 141 Potassium Level 3.6 Chloride Level 107 Carbon Dioxide Level 29 Anion Gap 5 Blood Urea Nitrogen 22 H Creatinine 1.25 H Est Glomerular Filtrat Rate mL/min > 60 Glucose Level 104 Calcium Level 8.5 Subjective 24 Hr Interval Summary Respiratory: shortness of breath (BETTER) Cardiovascular: no complaints Gastrointestinal: no complaints Exam/Review of Systems Vital Signs Vitals Vital Signs Date Temp Pulse Resp B/P (MAP) Pulse Ox O2 O2 Flow FiO2 Time Delivery Rate 05/25/18 89 16:00 05/25/18 98.5 20 103/70 97 15:32 (81) 05/25/18 Room Air 04:00 05/24/18 2.0 10:52 Intake and Output 05/24/18 05/24/18 05/25/18 1414:59 22:59 06:59 IntakeIntake Total 100 ml 850 ml 746 ml OutputOutput Total 2500 ml 4150 ml BalanceBalance 100 ml -1650 ml -3404 ml Exam Respiratory: clear to auscultation Cardiovascular: regular rate and rhythm Gastrointestinal: soft, bowel sounds (+) Extremities: No edema Medications Medications Current Medications Ondansetron HCl (Zofran Inj) 4 mg Q6H PRN IV NAUSEA AND/OR VOMITING Last administered on 05/24/18 04:23; Admin Dose 4 MG; Start 05/23/18 at 17:00 Acetaminophen (Tylenol Tab) 650 mg Q6H PRN PO PAIN LEVEL 1-3 OR FEVER Last administered on 05/24/18 03:46; Admin Dose 650 MG; Start 05/23/18 at 17:00 Acetaminophen/ Hydrocodone Bitart ([place] (5/325)) 1 tab Q6H PRN PO MODERATE PAIN LEVEL 4-6; Start 05/23/18 at 17:00 Docusate Sodium (Colace) 100 mg Q12H PRN PO CONSTIPATION; Start 05/23/18 at 17:00 Pantoprazole (Protonix Iv) 40 mg DAILY@06 IV Last administered on 05/25/18 05:31; Admin Dose 40 MG; Start 05/24/18 at 06:00 Enoxaparin Sodium (Lovenox) 40 mg DAILY SC Last administered on 05/25/18 08:58; Admin Dose 40 MG; Start 05/24/18 at 09:00; Status Hold Furosemide (Lasix) 40 mg BID IV Last administered on 05/25/18 08:22; Admin Dose 40 MG; Start 05/23/18 at 21:00 Carvedilol (Coreg) 3.125 mg BID PO Last administered on 05/25/18 08:22; Admin Dose 3.125 MG; Start 05/23/18 at 21:00 Aspirin (Aspirin) 81 mg DAILY PO Last administered on 05/25/18 08:21; Admin Dose 81 MG; Start 05/24/18 at 09:00 Ceftriaxone Sodium 50 ml @ 100 mls/hr DAILY IVPB Last administered on 05/25/18 08:21; Admin Dose 100 MLS/HR; Start 05/23/18 at 17:00 Guaifenesin/ Codeine Phosphate (Robitussin Ac Liquid Cup) 10 ml TID PRN PO C OUGH Last administered on 05/24/18 09:04; Admin Dose 10 ML; Start 05/23/18 at 23:00 Diphenhydramine HCl (Benadryl) 50 mg TID PRN PO ITCHING; Start 05/24/18 at 04:30 Mirtazapine (Remeron) 30 mg DAILY PO Last administered on 05/25/18at 08:21; Admin Dose 30 MG; Start 05/24/18 at 09:00 Quetiapine Fumarate (Seroquel) 300 mg QHS PO Last administered on 05/24/18at 21:12; Admin Dose 300 MG; Start 05/24/18 at 21:00 Lorazepam (Ativan) 1 mg Q6H PRN IV AGITATION/ANXIETY; Start 05/24/18 at 04:30 Apixaban (Eliquis) 5 mg BID PO ; Start 05/25/18 at 21:00 CHARI PULIDO MD May 25, 2018 17:52
[2018-05-25] MEDS: APIXABAN 5 MG TABLET PO SCH (20:29)
[2018-05-25] MEDS: QUETIAPINE 100 MG TAB PO SCH (20:29)
--- NOTE | 2018-05-25 21:22 | RADRPT ---
Vent Rate: 88 bpm RR Interval: 0 msec PA Interval: 136 msec QRS Duration: 102 msec QT Interval: 406 msec QTC Interval: 491 msec P-R-T Echo: 58 - 30 - 121 degrees Normal sinus rhythm Biatrial enlargement Septal infarct , age undetermined T wave abnormality, consider lateral ischemia Abnormal ECG Electronically Signed By: Simon Callaway [id number]
[2018-05-25] MEDS: DIPHENHYDRAMINE 50 MG CAP PO PRN (22:15)
[2018-05-26] VITALS (14 sets, daily range): BP systolic 87–109; BP diastolic 51–79; PULSE 74–150; RESP 16–19
[2018-05-26] MEDS: PANTOPRAZOLE 40 MG INJ IV SCH (05:58)
[2018-05-26] MEDS: APIXABAN 5 MG TABLET PO SCH ×2 (08:02→20:10)
[2018-05-26] MEDS: ASPIRIN 81 MG TAB PO SCH (08:02)
[2018-05-26] MEDS: CEFTRIAXONE 1 GM/50 ML (PMX) 50 ML IVPB SCH (08:03)
[2018-05-26] MEDS: MIRTAZAPINE 15 MG TAB PO SCH (08:03)
[2018-05-26] MEDS: FUROSEMIDE 40 MG INJ IV SCH (08:05)
--- NOTE | 2018-05-26 11:14 | PN ---
Date/Time of Note Date/Time of Note DATE: 05/26/18 TIME: 11:11 Assessment/Plan VTE Prophylaxis Risk score (from Ns)>0 risk: 1 SCD applied (from Ns): Yes Pharmacological prophylaxis: NA/contraindicated Pharm contraindication: low risk/ambulating Lines/Catheters IV Catheter Type (from Nrsg): Saline Lock Urinary Cath still in place: No Assessment/Plan Hospital Course 43 y/o with 1. SYS CHF 2. abnormal LFTs. no abodominal pain currently 3. Nonischemic cardiomyopathy. 4. Hypertension. 5. Methamphetamine and marijuana use. 6. Chronic kidney disease, stable. 7 LOW EF 8 Non sustained EF Plan - spoke to suiter donnie [phone] - Will call [facility] for capacity - cw asa/ eliquis/ lasix/coreg - pt need to off drugs - ? drug rehab -? AICD or life vest ? however pt not agreeable Result Diagram: 05/25/18 0516 05/25/18 0516 Subjective 24 Hr Interval Summary Free Text/Dictation pt says he is doing ok " his vitals are ok" He had 40 beats of vtach last night Exam/Review of Systems Vital Signs Vitals Vital Signs Date Temp Pulse Resp B/P (MAP) Pulse Ox O2 O2 Flow FiO2 Time Delivery Rate 05/26/18 78 09:05 05/26/18 97.5 17 97/63 (74) 95 07:15 05/26/18 Room Air 04:18 05/24/18 2.0 10:52 Intake and Output 05/25/18 05/25/18 05/26/18 1515:00 23:00 07:00 IntakeIntake Total 1900 ml 2400 ml OutputOutput Total 2900 ml 2500 ml BalanceBalance -1000 ml -100 ml Exam ENERAL: The patient is awake, alert, oriented, and does not appear to be in any acute distress. HEENT: Pupils equal, round, and reactive to light. No JVD appreciated. HEART: Regular rate rhythm, no systolic ejection murmur appreciated. ABDOMEN: Some tenderness present in the epigastrium. Positive bowel sounds. EXTREMITIES: 2+ edema.improved NEUROLOGIC: Nonfocal. Medications Medications Current Medications Ondansetron HCl (Zofran Inj) 4 mg Q6H PRN IV NAUSEA AND/OR VOMITING Last administered on 05/24/18 04:23; Admin Dose 4 MG; Start 05/23/18 at 17:00 Acetaminophen (Tylenol Tab) 650 mg Q6H PRN PO PAIN LEVEL 1-3 OR FEVER Last administered on 05/24/18 03:46; Admin Dose 650 MG; Start 05/23/18 at 17:00 Acetaminophen/ Hydrocodone Bitart ([place] (5/325)) 1 tab Q6H PRN PO MODERATE PAIN LEVEL 4-6; Start 05/23/18 at 17:00 Docusate Sodium (Colace) 100 mg Q12H PRN PO CONSTIPATION; Start 05/23/18 at 17:00 Pantoprazole (Protonix Iv) 40 mg DAILY@06 IV Last administered on 05/26/18 05:58; Admin Dose 40 MG; Start 05/24/18 at 06:00 Enoxaparin Sodium (Lovenox) 40 mg DAILY SC Last administered on 05/25/18 08:58; Admin Dose 40 MG; Start 05/24/18 at 09:00; Status Hold Carvedilol (Coreg) 3.125 mg BID PO Last administered on 05/25/18 20:29; Admin Dose 3.125 MG; Start 05/23/18 at 21:00 Aspirin (Aspirin) 81 mg DAILY PO Last administered on 05/26/18 08:02; Admin Dose 81 MG; Start 05/24/18 at 09:00 Guaifenesin/ Codeine Phosphate (Robitussin Ac Liquid Cup) 10 ml TID PRN PO COUGH Last administered on 05/24/18 09:04; Admin Dose 10 ML; Start 05/23/18 at 23:00 Diphenhydramine HCl (Benadryl) 50 mg TID PRN PO ITCHING Last administered on 05/25/18 22:15; Admin Dose 50 MG; Start 05/24/18 at 04:30 Mirtazapine (Remeron) 30 mg DAILY PO Last administered on 05/26/18 08:03; Admin Dose 30 MG; Start 05/24/18 at 09:00 Quetiapine Fumarate (Seroquel) 300 mg QHS PO Last administered on 05/25/18 20:29; Admin Dose 300 MG; Start 05/24/18 at 21:00 Lorazepam (Ativan) 1 mg Q6H PRN IV AGITATION/ANXIETY; Start 05/24/18 at 04:30 Apixaban (Eliquis) 5 mg BID PO Last administered on 05/26/18at 08:02; Admin Dose 5 MG; Start 05/25/18 at 21:00 Furosemide (Lasix) 40 mg DAILY IV ; Start 05/27/18 at 09:00 FANNY REGAN MD May 26, 2018 11:14
[2018-05-26] MEDS: GUAIFENESIN/CODEINE 5ML CUP PO PRN ×2 (13:14→20:11)
[2018-05-26] MEDS ORDERED: POTASSIUM CHLORIDE (SR) 20 MEQ TAB PO STA (13:22)
--- NOTE | 2018-05-26 13:22 | CONS ---
Date/Time of Note Date/Time of Note DATE: 05/26/18 TIME: 13:15 Assessment/Plan Assessment/Plan Hospital Course IMP: 1.Cardiomyopathy-EF 10% by ec ho this admit 2.HTN 3.CHF-systolic acute on chronic 4.Wide complex tachycardia-? NSVT 5. substance abuse 6. RENAL INSUFF Recc: --Tele -Sari -Continue bb -START low dose ACEI as tolerated -lifevest eval -Continue eliquis/asa Result Diagram: 05/25/1816 05/25/18 0516 Consultation Date/Type/Reason Admit Date/Time May 23, 2018 at 16:05 Initial Consult Date 05/26/18 Type of Consult cardiology Reason for Consultation cardiomyopathy Requesting Provider: CHARI PULIDO MD Exam/Review of Systems Vital Signs Vitals Vital Signs Date Temp Pulse Resp B/P (MAP) Pulse Ox O2 O2 Flow FiO2 Time Delivery Rate 05/26/18 78 12:43 05/26/18 98.6 19 108/74 99 11:18 (85) 05/26/18 Room Air 04:18 05/24/18 2.0 10:52 Intake and Output 05/25/18 05/25/18 05/26/18 1515:00 23:00 07:00 IntakeIntake Total 1900 ml 2400 ml OutputOutput Total 2900 ml 2500 ml BalanceBalance -1000 ml -100 ml Exam Review of Systems: CONSTITUTIONAL: No fevers, chills. PULMONARY: No sob CARDIOVASCULAR: No chest pain/palpitations GASTROINTESTINAL: No nausea/vomiting. GENITOURINARY: No hematuria/dysuria. MUSCULOSKELETAL: No myagias/arthalgias. PSYCHIATRIC: The patient denies depression. NEUROLOGIC: No weakness Constitutional: alert Psych: no complaints Head: normocephalic ENMT: mucosa pink and moist Neck: supple, jvd (9 cm water) Respiratory: diminished breath sounds Cardiovascular: regular rate and rhythm Gastrointestinal: soft, non-tender Musculoskeletal: muscle tone (normal) Extremities: edema (none) Neurological: other (NO focal deficits) Medications Medications Current Medications Ondansetron HCl (Zofran Inj) 4 mg Q6H PRN IV NAUSEA AND/OR VOMITING Last administered on 05/24/18at 04:23; Admin Dose 4 MG; Start 05/23/18 at 17:00 Acetaminophen (Tylenol Tab) 650 mg Q6H PRN PO PAIN LEVEL 1-3 OR FEVER Last administered on 05/24/18 03:46; Admin Dose 650 MG; Start 05/23/18 at 17:00 Acetaminophen/ Hydrocodone Bitart ([place] (5/325)) 1 tab Q6H PRN PO MODERATE PAIN LEVEL 4-6; Start 05/23/18 at 17:00 Docusate Sodium (Colace) 100 mg Q12H PRN PO CONSTIPATION; Start 05/23/18 at 17:00 Pantoprazole (Protonix Iv) 40 mg DAILY@06 IV Last administered on 05/26/18 05:58; Admin Dose 40 MG; Start 05/24/18 at 06:00 Enoxaparin Sodium (Lovenox) 40 mg DAILY SC Last administered on 05/25/18 08:58; Admin Dose 40 MG; Start 05/24/18 at 09:00; Status Hold Carvedilol (Coreg) 3.125 mg BID PO Last administered on 05/25/18 20:29; Admin Dose 3.125 MG; Start 05/23/18 at 21:00 Aspirin (Aspirin) 81 mg DAILY PO Last administered on 05/26/18 08:02; Admin Dose 81 MG; Start 05/24/18 at 09:00 Guaifenesin/ Codeine Phosphate (Robitussin Ac Liquid Cup) 10 ml TID PRN PO CO UGH Last administered on 05/24/18 09:04; Admin Dose 10 ML; Start 05/23/18 at 23:00 Diphenhydramine HCl (Benadryl) 50 mg TID PRN PO ITCHING Last administered on 05/25/18 22:15; Admin Dose 50 MG; Start 05/24/18 at 04:30 Mirtazapine (Remeron) 30 mg DAILY PO Last administered on 05/26/18 08:03; Admin Dose 30 MG; Start 05/24/18 at 09:00 Quetiapine Fumarate (Seroquel) 300 mg QHS PO Last administered on 05/25/18 20:29; Admin Dose 300 MG; Start 05/24/18 at 21:00 Lorazepam (Ativan) 1 mg Q6H PRN IV AGITATION/ANXIETY; Start 05/24/18 at 04:30 Apixaban (Eliquis) 5 mg BID PO Last administered on 05/26/18at 08:02; Admin Dose 5 MG; Start 05/25/18 at 21:00 Furosemide (Lasix) 40 mg DAILY IV ; Start 05/27/18 at 09:00 MADINA ELIZABETH May 26, 2018 13:22
[2018-05-26] MEDS ORDERED: MAGNESIUM SULFATE 2 GM/50 ML 50 ML IVPB ONE (14:30)
[2018-05-26] MEDS: QUETIAPINE 100 MG TAB PO SCH (20:10)
[2018-05-27] VITALS: BP 124/68; PULSE 71; PULSE 76; RESP 18
[2018-05-27 04:00] VITALS: BP 115/70; PULSE 79; PULSE 80; RESP 19
[2018-05-27] MEDS: PANTOPRAZOLE 40 MG INJ IV SCH (05:28)
[2018-05-27 07:25] VITALS: BP 131/61; PULSE 70; RESP 20
[2018-05-27] MEDS: GUAIFENESIN/CODEINE 5ML CUP PO PRN (08:37)
[2018-05-27] MEDS: APIXABAN 5 MG TABLET PO SCH (08:37)
[2018-05-27] MEDS: ASPIRIN 81 MG TAB PO SCH (08:37)
[2018-05-27] MEDS: DIPHENHYDRAMINE 50 MG CAP PO PRN (08:37)
[2018-05-27] MEDS: MIRTAZAPINE 15 MG TAB PO SCH (08:37)
[2018-05-27] MEDS ORDERED: LISINOPRIL 5 MG TAB PO SCH (09:00)
[2018-05-27] MEDS ORDERED: FUROSEMIDE 40 MG INJ IV SCH ×2 (09:00→18:00)
[2018-05-27 09:09] VITALS: PULSE 80
--- NOTE | 2018-05-27 09:24 | CONS ---
Date/Time of Note Date/Time of Note DATE: 05/27/18 TIME: 09:22 Assessment/Plan Assessment/Plan Assessment/Plan 1.Cardiomyopathy-EF 10% by ec ho this admit - pt has indication for ICD if drugs free - concern for compliance - I think LifeVest is reasonable, will consider ICD as outpt when pt comes for f/up. 2.HTN - better now 3.CHF-systolic acute on chronic- improved fluid status 4.Wide complex tachycardia-? NSVT - on med Rx as tolerated 5. substance abuse - d/c avised 6. RENAL INSUFF - reasonable urine output now Result Diagram: 05/27/1818 05/27/18517 Results 24hrs Laboratory Tests Test 05/26/18 13:58 05/27/18 05:18 Troponin I 0.427 *H White Blood Count 4.2 #L Red Blood Count 4.63 L Hemoglobin 13.8 L Hematocrit 41.4 L Mean Corpuscular Volume 89.4 Mean Corpuscular Hemoglobin 29.8 Mean Corpuscular Hemoglobin Concent 33.3 Red Cell Distribution Width 15.4 H Platelet Count 218 Mean Platelet Volume 10.6 H Immature Granulocytes % 0.700 H Neutrophils % 42.9 Lymphocytes % 30.6 Monocytes % 16.8 H Eosinophils % 8.3 H Basophils % 0.7 Nucleated Red Blood Cells % 0.0 Immature Granulocytes # 0.030 Neutrophils # 1.8 Lymphocytes # 1.3 Monocytes # 0.7 Eosinophils # 0.4 Basophils # 0.0 Nucleated Red Blood Cells # 0.0 Sodium Level 139 Potassium Level 4.6 Chloride Level 105 Carbon Dioxide Level 27 Anion Gap 7 Blood Urea Nitrogen 22 H Creatinine 1.09 Est Glomerular Filtrat Rate mL/min > 60 Glucose Level 107 Calcium Level 8.0 L Phosphorus Level 3.1 Magnesium Level 2.1 Consultation Date/Type/Reason Admit Date/Time May 23, 2018 at 16:05 Initial Consult Date Requesting Provider: CHARI PULIDO MD 24 HR Interval Summary Free Text/Dictation pt has indication for ICD if drugs free - concern for compliance - I think LifeVest is reasonable, will consider ICD as outpt when pt comes for f/up. ROS: No fever, no chills, no nausea, no vomiting, no diarrhea/constipation No recent weight changes No chest pain, no PND, no orthopnea - improved No dizziness, blurred vision No thirst, no heat or cold intolerance Exam/Review of Systems Vital Signs Vitals Vital Signs Date Temp Pulse Resp B/P (MAP) Pulse Ox O2 O2 Flow FiO2 Time Delivery Rate 05/27/18 80 09:09 05/27/18 Room Air 07:58 05/27/18 98.0 20 131/61 96 07:25 (84) 05/24/18 2.0 10:52 Intake and Output 05/26/18 05/26/18 05/27/18 1515:00 23:00 07:00 IntakeIntake Total 50 ml 1250 ml OutputOutput Total 1550 ml BalanceBalance 50 ml -300 ml Exam General: WN/WD/NAD, AOx 3 HEENT: Unicetric/atraumatic/EOMI (follow commands) NECK: JVD elevated, no thyromegaly Lymph: no lymphadenopathy HEART: regular with no S3, II/ systolic murmur at apex, PMI L LUNGS: Coarse sounds ABD: soft, NT, ND, +BS : Intact Neuro: non focal SKIN: chronic changes EXT: trace edema Medications Medications Current Medications Ondansetron HCl (Zofran Inj) 4 mg Q6H PRN IV NAUSEA AND/OR VOMITING Last administered on 05/24/18at 04:23; Admin Dose 4 MG; Start 05/23/18 at 17:00 Acetaminophen (Tylenol Tab) 650 mg Q6H PRN PO PAIN LEVEL 1-3 OR FEVER Last administered on 05/24/18at 03:46; Admin Dose 650 MG; Start 05/23/18 at 17:00 Acetaminophen/ Hydrocodone Bitart ([place] (5/325)) 1 tab Q6H PRN PO MODERATE PAIN LEVEL 4-6; Start 05/23/18 at 17:00 Docusate Sodium (Colace) 100 mg Q12H PRN PO CONSTIPATION Last administered on 05/27/18at 08:37; Admin Dose 100 MG; Start 05/23/18 at 17:00 Pantoprazole (Protonix Iv) 40 mg DAILY@06 IV Last administered on 05/27/18at 05:28; Admin Dose 40 MG; Start 05/24/18 at 06:00 Enoxaparin Sodium (Lovenox) 40 mg DAILY SC Last administered on 05/25/18at 08:58; Admin Dose 40 MG; Start 05/24/18 at 09:00; Status Hold Carvedilol (Coreg) 3.125 mg BID PO Last administered on 05/27/18 08:38; Admin Dose 3.125 MG; Start 05/23/18 at 21:00 Aspirin (Aspirin) 81 mg DAILY PO Last administered on 05/27/18 08:37; Admin Dose 81 MG; Start 05/24/18 at 09:00 Guaifenesin/ Codeine Phosphate (Robitussin Ac Liquid Cup) 10 ml TID PRN PO COUGH Last administered on 05/27/18 08:37; Admin Dose 10 ML; Start 05/23/18 at 23:00 Diphenhydramine HCl (Benadryl) 50 mg TID PRN PO ITCHING Last administered on 05/27/18 08:37; Admin Dose 50 MG; Start 05/24/18 at 04:30 Mirtazapine (Remeron) 30 mg DAILY PO Last administered on 05/27/18 08:37; Admin Dose 30 MG; Start 05/24/18 at 09:00 Quetiapine Fumarate (Seroquel) 300 mg QHS PO Last administered on 05/26/18 20:10; Admin Dose 300 MG; Start 05/24/18 at 21:00 Lorazepam (Ativan) 1 mg Q6H PRN IV AGITATION/ANXIETY; Start 05/24/18 at 04:30 Apixaban (Eliquis) 5 mg BID PO Last administered on 05/27/18 08:37; Admin Dose 5 MG; Start 05/25/18 at 21:00 Furosemide (Lasix) 40 mg DAILY IV Last administered on 05/27/18 08:38; Admin Dose 40 MG; Start 05/27/18 at 09:00 Lisinopril (Zestril) 2.5 mg DAILY PO Last administered on 05/27/18 08:38; Admin Dose 2.5 MG; Start 05/27/18 at 09:00 SERINA HOLDER MD May 27, 2018 09:24
--- NOTE | 2018-05-27 11:35 | PN ---
Date/Time of Note Date/Time of Note DATE: 05/27/18 TIME: 11:33 Assessment/Plan VTE Prophylaxis Risk score (from Ns)>0 risk: 3 SCD applied (from Ns): Yes Pharmacological prophylaxis: NA/contraindicated Pharm contraindication: low risk/ambulating Lines/Catheters IV [facility]ter [facility]from [facility] Saline Lock Urinary Cath still in place: No Assessment/Plan Hospital Course 43 y/o with 1. Acute on chronic SYS CHF with EF 10% 2. abnormal LFTs. no abodominal pain currently 3. Nonischemic cardiomyopathy. 4. Hypertension. 5. Methamphetamine and marijuana use. 6. Chronic kidney disease, stable. 7 LOW EF 8 wIDE COMPLEX TACHYCARDIA Plan - pscy eval today - life vest today - increase lasix - xray - cw asa/ eliquis/ lasix/coreg/lisnopril - u tox +cocaine - pt need to off drugs for any surgical intervention dispo pending life vest and pscy eval Result Diagram: 05/27/1851705/27/1818 Results 24hrs Laboratory Tests Test 05/26/18 13:58 05/27/18 05:18 05/27/18 09:50 Troponin I 0.427 *H White Blood Count 4.2 #L Red Blood Count 4.63 L Hemoglobin 13.8 L Hematocrit 41.4 L Mean Corpuscular Volume 89.4 Mean Corpuscular Hemoglobin 29.8 Mean Corpuscular Hemoglobin Concent 33.3 Red Cell Distribution Width 15.4 H Platelet Count 218 Mean Platelet Volume 10.6 H Immature Granulocytes % 0.700 H Neutrophils % 42.9 Lymphocytes % 30.6 Monocytes % 16.8 H Eosinophils % 8.3 H Basophils % 0.7 Nucleated Red Blood Cells % 0.0 Immature Granulocytes # 0.030 Neutrophils # 1.8 Lymphocytes # 1.3 Monocytes # 0.7 Eosinophils # 0.4 Basophils # 0.0 Nucleated Red Blood Cells # 0.0 Sodium Level 139 Potassium Level 4.6 Chloride Level 105 Carbon Dioxide Level 27 Anion Gap 7 Blood Urea Nitrogen 22 H Creatinine 1.09 Est Glomerular Filtrat Rate mL/min > 60 Glucose Level 107 Calcium Level 8.0 L Phosphorus Level 3.1 Magnesium Level 2.1 Urine Color COLORLESS Urine Clarity CLEAR Urine pH 7.0 Urine Specific [place] 1.006 Urine Ketones NEGATIVE Urine Nitrite NEGATIVE Urine Bilirubin NEGATIVE Urine Urobilinogen NEGATIVE Urine Leukocyte Esterase NEGATIVE Urine Hemoglobin NEGATIVE Urine Glucose NEGATIVE Urine Total Protein NEGATIVE Urine Opiates Screen POSITIVE Urine Barbiturates NEGATIVE Urine Amphetamines Screen NEGATIVE Urine Benzodiazepines Screen NEGATIVE Urine Cocaine Screen NEGATIVE Urine Cannabinoids POSITIVE Subjective 24 Hr Interval Summary Free Text/Dictation Feels slight better Life vest pending Exam/Review of Systems Vital Signs Vitals Vital Signs Date Temp Pulse Resp B/P (MAP) Pulse Ox O2 O2 Flow FiO2 Time Delivery Rate 05/27/18 80 09:09 05/27/18 Room Air 07:58 05/27/18 98.0 20 131/61 96 07:25 (84) 05/24/18 2.0 10:52 Intake and Output 05/26/18 05/26/18 05/27/18 1515:00 23:00 07:00 IntakeIntake Total 50 ml 1250 ml OutputOutput Total 1550 ml BalanceBalance 50 ml -300 ml Exam ENERAL: The patient is awake, alert, oriented, and does not appear to be in any acute distress. HEENT: Pupils equal, round, and reactive to light. No JVD appreciated. HEART: Regular rate rhythm, no systolic ejection murmur appreciated. ABDOMEN: Some tenderness present in the epigastrium. Positive bowel sounds. EXTREMITIES: 2+ edema.improved NEUROLOGIC: Nonfocal. Medications Medications Current Medications Ondansetron HCl (Zofran Inj) 4 mg Q6H PRN IV NAUSEA AND/OR VOMITING Last administered on 05/24/18at 04:23; Admin Dose 4 MG; Start 05/23/18 at 17:00 Acetaminophen (Tylenol Tab) 650 mg Q6H PRN PO PAIN LEVEL 1-3 OR FEVER Last administered on 05/24/18at 03:46; Admin Dose 650 MG; Start 05/23/18 at 17:00 Acetaminophen/ Hydrocodone Bitart ([place] (5/325)) 1 tab Q6H PRN PO MODERATE PAIN LEVEL 4-6; Start 05/23/18 at 17:00 Docusate Sodium (Colace) 100 mg Q12H PRN PO CONSTIPATION Last administered on 05/27/18at 08:37; Admin Dose 100 MG; Start 05/23/18 at 17:00 Pantoprazole (Protonix Iv) 40 mg DAILY@06 IV Last administered on 05/27/18at 05:28; Admin Dose 40 MG; Start 05/24/18 at 06:00 Enoxaparin Sodium (Lovenox) 40 mg DAILY SC Last administered on 05/25/18 08:58; Admin Dose 40 MG; Start 05/24/18 at 09:00; Status Hold Carvedilol (Coreg) 3.125 mg BID PO Last administered on 05/27/18 08:38; Admin Dose 3.125 MG; Start 05/23/18 at 21:00 Aspirin (Aspirin) 81 mg DAILY PO Last administered on 05/27/18 08:37; Admin Dose 81 MG; Start 05/24/18 at 09:00 Guaifenesin/ Codeine Phosphate (Robitussin Ac Liquid Cup) 10 ml TID PRN PO COUGH Last administered on 05/27/18 08:37; Admin Dose 10 ML; Start 05/23/18 at 23:00 Diphenhydramine HCl (Benadryl) 50 mg TID PRN PO ITCHING Last administered on 05/27/18 08:37; Admin Dose 50 MG; Start 05/24/18 at 04:30 Mirtazapine (Remeron) 30 mg DAILY PO Last administered on 05/27/18 08:37; Admin Dose 30 MG; Start 05/24/18 at 09:00 Quetiapine Fumarate (Seroquel) 300 mg QHS PO Last administered on 05/26/18 20:10; Admin Dose 300 MG; Start 05/24/18 at 21:00 Lorazepam (Ativan) 1 mg Q6H PRN IV AGITATION/ANXIETY; Start 05/24/18 at 04:30 Apixaban (Eliquis) 5 mg BID PO Last administered on 05/27/18 08:37; Admin Dose 5 MG; Start 05/25/18 at 21:00 Furosemide (Lasix) 40 mg DAILY IV Last administered on 05/27/18 08:38; Admin Dose 40 MG; Start 05/27/18 at 09:00 Lisinopril (Zestril) 2.5 mg DAILY PO Last administered on 05/27/18 08:38; Admin Dose 2.5 MG; Start 05/27/18 at 09:00 FANNY REGAN MD May 27, 2018 11:35
[2018-05-27 11:39] VITALS: BP 107/66; PULSE 72; RESP 20
[2018-05-27 12:25] VITALS: PULSE 72
--- NOTE | 2018-05-27 18:16 | DS ---
DATE OF ADMISSION: 05/23/2018 DATE OF DISCHARGE: 05/27/2018 HISTORY OF PRESENT ILLNESS AND HOSPITAL COURSE: A 43-year-old male with a past medical history of hy pertension, severe cardiomyopathy, EF of 20%, multiple admissions secondary to congestive heart failu re, noncompliance, amphetamine use and cocaine use who presented to the emergency department complain ing of shortness of breath for the last 2 days. The patient said that he stopped taking his medicati on 1-1/2 months ago and over the last 2 days, he has been feeling extremely short of breath, unable t o lie down flat and had worsening lower extremity edema. The patient said that he hurts all over. W hen specifically asked, his nipples hurt, he says. He denied any fevers and chills. His blood press ure on admission was 126/95, afebrile. The patient on exam had 2+ edema. The patient had a chest x- ray done that showed that he had slight interval increase in heart size and moderately enlarged pulmo nary vasculature, which are above normal. The patient also had abdominal ultrasound due to abnormal LFTs and showed gallbladder is somewhat contracted and 2 cm diameter gallstone is seen in the gallbla dder, no bile duct dilatation. Kidneys appear mildly echogenic. The patient was started on IV Lasix 40 b.i.d. The patient was seen in Cardiology consultation with Dr. Islas and their recommendation s were as followed. The patient was also started on Coreg and was also started on lisinopril. The p lisa's echo was also done there and showed an EF of 10% and also he had probable thrombi seen and s moke effect noted in the left ventricle. Case was discussed also with the patient; however, he said that he is doing fine. His heart is functioning fine. I spoke with the sister over the phone and ex pressed the concern of the patient's grave cardiac history and the sister agreed with the above. Psy ch consultation was also obtained. The patient was also having wide complex tachycardia. Mag and po tassium were repleted; however, patient left AMA. U-tox was also positive for cannabis and opiates. FINAL DISCHARGE DIAGNOSES: 1. Acute on chronic systolic congestive heart failure with ejection fraction of 10%. 2. Abnormal liver function tests. No abdominal pain currently. Abdominal ultrasound as above. 3. Nonischemic cardiomyopathy. 4. Amphetamine and cocaine use. 5. Hypertension. 6. Chronic kidney disease. 7. Wide complex tachycardia. The patient refused LifeVest and left. Dictated By: FANNY GUZMAN/ALETA Conf#: [id number] DID#: [id number]
== END 2018-05-27 15:30 | disposition left against medical advice (07) | DRG 291 ==
LOC: E/R 14:36 → 6WM 16:05
PROVIDERS: ADMIT Internal Medicine; ATTEND Internal Medicine
DX: I13.0 Hypertensive heart and chronic kidney disease with heart failure and stage 1 through stage 4 chronic kidney disease, or unspecified chronic kidney disease (principal); I50.23 Acute on chronic systolic (congestive) heart failure; I47.2 Ventricular tachycardia; N18.9 Chronic kidney disease, unspecified; I42.9 Cardiomyopathy, unspecified; F15.10 Other stimulant abuse, uncomplicated; F12.10 Cannabis abuse, uncomplicated; K80.80 Other cholelithiasis without obstruction; R94.5 Abnormal results of liver function studies; F17.210 Nicotine dependence, cigarettes, uncomplicated; Z59.0 Homelessness; Z91.14 Patient's other noncompliance with medication regimen
CPT/HCPCS: 36415; 71045; 76700; 80048; 80053; 80307; 81003; 82550; 82553; 83690; 83735; 83880; 84100; 84484; 85025; 85610; 93005; 93306; 96374; C9113; J0696; J1650; J1940; J2405; J3475